=== PATIENT | male | born 1950 | race American Indian/Alaskan Native ===

== ENCOUNTER → 2018-06-06 15:04 | Outpatient (CLI) | payer MEDICARE, OTHER, SELFPAY ==
[2018-06-06 15:59] LABS: Hemoglobin A1C% w Est Avg Glu 7.4 % (4.0-6.0)
[2018-06-06 16:10] LABS: Alanine Aminotransferase 30 IU/L (21-72); Albumin 3.8 g/dL (3.5-5.0); Albumin Globulin Ratio 1.4 (1.0-2.8); Alkaline Phosphatase 67 U/L (38-126); Aspartate Aminotransferase 26 IU/L (17-59); Bilirubin Total 0.5 mg/dL (0.2-1.3); Blood Urea Nitrogen 24 mg/dL (9-20); Calcium 9.1 mg/dL (8.4-10.2); Carbon Dioxide 23 mmol/L (22-32); Chloride 107 mmol/L (98-107); Estimated Glomerular Filt Rate > 60.0 mL/min (>60); Globulin 2.8 g/dL (1.7-4.1); Glucose 156 mg/dL (80-110); HEMOLYSIS < 15 (0-50); Potassium 4.4 mmol/L (3.4-5.1); Sodium 144 mmol/L (137-145); Total Protein 6.6 g/dL (6.3-8.2)
== END ==
PROVIDERS: Visit Provider Internal Medicine
DX: E11.9 Type 2 diabetes mellitus without complications (principal)
CPT/HCPCS: 36415; 80053; 83036

== ENCOUNTER 2018-10-01 19:09 | Emergency (ER) | payer MEDICARE, OTHER, SELFPAY ==
[2018-10-01 19:13] VITALS: BP 147/82; PULSE 67; RESP 18; TEMP 36.9; O2SAT 97; BMI 37.6
--- NOTE | 2018-10-01 19:26 | DI.RAD.S_ITS ---
PROCEDURE: XR CHEST 1V INDICATIONS: chest pain TECHNIQUE: One view of the chest was acquired. COMPARISON: None. FINDINGS: Surgical changes and devices: None. Lungs and pleura: No pleural effusions or pneumothorax. Lungs are clear. Mediastinum: Mediastinal contours appear normal. Heart size is normal. Bones and chest wall: No suspicious bony lesions. Overlying soft tissues appear unremarkable. IMPRESSION: No acute cardiopulmonary findings. Dictated by: Eugenia Muniz M.D. on 10/01/2018 at 20:05 Approved by: Eugenia Muniz M.D. on 10/01/2018 at 20:05
--- NOTE | 2018-10-01 19:38 | ED.CHESTPAIN ---
HPI - Chest Pain General Chief Complaint: Chest Pain Stated Complaint: left arm pain Time Seen by Provider: 10/01/18 19:12 Source: patient Mode of arrival: ambulatory Limitations: no limitations History of Present Illness HPI narrative: 68-year-old nonsmoking male with extensive cardiac history presents with chest pain and other cardiac equivalent over the course of week. His symptoms started a few days ago when he was exercising on a stationary bicycle and developed anterior chest pressure with radiation to his shoulder arm and jaw. He became short of breath, dizzy diaphoretic and nauseated. His symptoms lasted a few hours and then resolved. Since then he has had a few other episodes of relatively similar type symptoms though not quite as severe. Earlier today he had an episode left shoulder and arm pressure with radiation into his neck while at rest. His drupal web developer is up in [place] and he has had no provocative testing in some time. He denies any current symptoms. He is not dizzy nor weak or lightheaded. Denies any current chest pain or shortness of breath. The patient states he has taken all of his medications today MD complaint: chest pain Onset (ago): hour(s) Duration: now resolved Pain location: left chest Severity: moderate Quality: aching Pain radiation: LUE, neck and jaw/teeth Relieving factors: rest Exacerbating factors: nothing Treatments prior to arrival chest pain: aspirin Related Data Home Medications Medication Instructions Recorded Confirmed carvedilol [Coreg] 50 mg PO BID #0 05/27/11 09/28/18 clopidogrel [Plavix] 75 mg PO QPM #0 07/21/12 09/28/18 isosorbide mononitrate 30 mg PO BID #0 06/10/17 09/28/18 rosuvastatin 5 mg PO HS #0 06/10/17 09/28/18 niacin 500 mg tablet 500 mg PO Q DAY #0 tab 06/06/18 09/28/18 amlodipine [Norvasc] 5 mg PO BID 10/01/18 insulin glargine [Lantus Solostar 40 units SUBCUT BID 10/01/18 10/01/18 U-100 Insulin] iron 25 mg DAILY 10/01/18 10/01/18 isosorbide mononitrate BID 10/01/18 losartan BID 10/01/18 metformin 500 mg PO ONCE HS 10/01/18 Previous Rx's Medication Instructions Recorded Disabled Parking Permit ea #1 10/15/16 gabapentin [Neurontin] 300 mg PO TID #90 tab 11/08/17 nitroglycerin 0.4 mg sublingual 0.4 mg SL Q5-15M PRN #20 tab 05/25/18 tablet aspirin 325 mg tablet 325 mg PO DAILY #1 tab 06/06/18 sucralfate 1 gram tablet 1 gram PO Q6H #120 tab 06/06/18 pantoprazole 40 mg tablet,delayed 40 mg PO BID #60 tab 08/04/18 release cyclobenzaprine 10 mg tablet 10 mg PO BID PRN #60 tab 09/06/18 insulin glargine (U-100) 100 40 unit SUBCUT BID #30 ml 09/21/18 unit/mL (3 mL) subcutaneous pen TRUE METRIX TEST STRIPS #1 ea 09/23/18 [LANCETS] #1 ea 09/23/18 losartan 50 mg tablet 50 mg PO BID #60 tab 09/23/18 Allergies Allergy/AdvReac Type Severity Reaction Status Date / Time atorvastatin [ATORVASTATIN] AdvReac Severe CHEST Verified 09/21/18 09:39 TIGHTNESS morphine [MORPHINE] AdvReac Mild GI UPSET Verified 09/21/18 09:39 AND VOMITING Review of Systems Review of Systems All systems reviewed & are unremarkable except as noted in HPI and below Constitutional Denies chills, Denies fever(s), Denies lethargy and Denies weakness Eyes Denies change in vision, Denies eye discharge, Denies irritation and Denies loss of vision ENT Ears, Nose, Mouth, and Throat: Denies change in voice, Denies neck pain and Denies sore throat Cardiovascular Denies chest pain, Denies irregular heart rhythm, Denies lightheadedness, Denies palpitations, Denies dyspnea, Denies dyspnea on exertion and Denies orthopnea Respiratory Denies cough, Denies dyspnea, Denies dyspnea on exertion and Denies wheezing Gastrointestinal Gastrointestinal: Denies abdominal pain, Denies change in bowel habits, Denies diarrhea, Denies nausea and Denies vomiting Genitourinary Denies hematuria, Denies flank pain, Denies urinary incontinence and Denies urinary urgency Musculoskeletal Denies neck pain Integumentary/Breasts Denies pruritus, Denies erythema, Denies rash and Denies wounds Neurologic Denies confusion, Denies loss of vision and Denies weakness Psychiatric Denies anxiety, Denies confusion, Denies depression, Denies homicidal ideation and Denies suicidal ideation Endocrine Denies palpitations Hematologic/Lymphatic Denies easy bruising Allergic/Immunologic Denies wheezing [facility] Medical History Obstructive sleep apnea of adult (Chronic ~2012) Excessive daytime sleepiness (Inactive ~2012) Insomnia, persistent (Inactive ~2012) CAD (coronary artery disease) (Chronic) CKD (chronic kidney disease) stage 3, GFR 30-59 ml/min (Chronic) Diabetes mellitus (Chronic) Hyperlipidemia (Chronic) Lumbar spinal stenosis (Chronic) Microalbuminuria (Chronic) Osteoarthritis of knees, bilateral (Chronic) Bilateral cataracts (Resolved 2018) H. pylori infection (Resolved) Surgical History History of cardiac catheterization (Resolved) History of cataract surgery (Resolved 2018) History of decompression of ulnar nerve (Resolved) History of heart artery stent (Resolved) History of spinal surgery (Resolved) History of total right knee replacement (TKR) (Resolved) Social History marital status: details: to Charmaine household members: spouse lives independently: Yes caregiver/support person: No housing: house occupational status: employed current occupational exposures/hazards: Yes ([employer]) Smoking Status: Never smoker alcohol intake: current substance use type: does not use caffeine: No Exam Narrative Exam Narrative: GENERAL: 68M, morbidly obese is resting comfortably, not currently in any obvious distress HEAD: Atraumatic. Normocephalic. No temporal or scalp tenderness. EYES: Pupils equal round and reactive. Extraocular motions intact. No scleral icterus. No injection or drainage. ENT: Nose without bleeding, purulent drainage or septal hematoma. Throat without erythema, tonsillar hypertrophy or exudate. Uvula midline. Airway patent. NECK: Trachea midline. No JVD or lymphadenopathy. Supple, nontender, no meningeal signs. CARDIOVASCULAR: Regular rate and rhythm without murmurs, gallops, or rubs. RESPIRATORY: Clear to auscultation. Breath sounds equal bilaterally. No wheezes, rales, or rhonchi. GASTROINTESTINAL: Abdomen soft, non-tender, nondistended. No hepato-splenomegaly, or palpable masses. No guarding. EXTREMITIES: No clubbing, cyanosis, or edema. No joint tenderness, effusion, or edema noted. BACK: Nontender without deformity or crepitance. No flank tenderness. NEURO: AOx3. SKIN: No rash or erythema. Initial Vital Signs Initial Vital Signs: Vital Signs Temperature 98.5 F 10/01/18 19:13 Pulse Rate 67 10/01/18 19:13 Respiratory Rate 18 10/01/18 19:13 Blood Pressure 147/82 H 10/01/18 19:13 Pulse Oximetry 97 10/01/18 19:13 Course Orders Ordered: ED Orders 10/01/18 19:26 XR chest 1V Stat EKG-12 Lead Stat 10/01/18 19:32 Complete Blood Count AUTO DIFF Stat Comprehensive Metabolic Panel Stat Lipase Stat Partial Thromboplastin Time Stat Prothrombin Time INR Stat Troponin & CK Cardiac Panel Stat Reevaluation(s) Reevaluation #1: patient continues to be pain free Consultations Consultation #1: call to cardiology at [facility] and we share agreement that patient is most appropriately cared for up there as he will likely need a cath. They request admission to hospitalist Consultation #2: Dr. Falcon is happy to accept on her hospitalist service Vital Signs - 8 hr 10/01/18 19:13 10/01/18 20:55 10/01/18 21:00 Temperature 98.5 F Pulse Rate 67 70 60 Respiratory Rate 18 20 21 Blood Pressure 147/82 H Blood Pressure [Right Arm] 131/76 123/68 Pulse Oximetry 97 100 100 MDM - Chest Pain Differential Diagnosis Likely unstable angina pectoris, atypical chest pain, st elevation myocardial infarction, costochondritis and chest pain Medical Records Data Attestation: I reviewed the patient's medical records. Lab Data Result diagrams: 10/01/18 19:32 10/01/18 19:32 Lab Results 10/01/18 10/01/18 10/01/18 Range/Units 19:32 19:32 19:32 WBC 7.2 (4.5-11.0) X10^3/uL RBC 4.56 (4.5-5.9) X10^6/uL Hgb 13.3 L (13.5-17.5) g/dL Hct 39.5 L (41-53) % MCV 86.7 (80-100) fL MCH 29.2 (26-34) PG MCHC 33.7 (30-36) % RDW 14.2 (11.6-14.8) % Plt Count 220 (150-400) X10^3/uL Neut % (Auto) 60.5 (50-75) % Lymph % (Auto) 28.4 (25-40) % [place] % (Auto) 7.3 (3-14) % Eos % (Auto) 3.1 (2-4) % Baso % (Auto) 0.7 (0-2) % Neut # (Auto) 4300 (8326-2165) /uL PT 11.2 (10.1-12.7) SECONDS INR 1.0 (0.9-1.3) APTT 33 (26.4-36.2) SECONDS Sodium 142 (137-145) mmol/L Potassium 4.1 (3.4-5.1) mmol/L Chloride 106 (98-107) mmol/L Carbon Dioxide 23 (22-32) mmol/L BUN 22 H (9-20) mg/dL Creatinine 1.20 (0.66-1.25) mg/dL Estimated GFR > 60.0 (>60) mL/min BUN/Creatinine Ratio 18.3 (6-22) Glucose 146 H (80-110) mg/dL Calcium 9.3 (8.4-10.2) mg/dL Total Bilirubin 0.5 (0.2-1.3) mg/dL AST 23 (17-59) IU/L ALT 32 (21-72) IU/L Alkaline Phosphatase 69 (38-126) U/L Total Creatine Kinase 42 L (55-170) U/L CK-MB (CK-2) TNP CK-MB (CK-2) Rel Index TNP Troponin I < 0.012 (0.01-0.034) ng/mL Total Protein 7.6 (6.3-8.2) g/dL Albumin 4.3 (3.5-5.0) g/dL Globulin 3.3 (1.7-4.1) g/dL Albumin/Globulin Ratio 1.3 (1.0-2.8) Lipase 143 (23-300) U/L ECG Data Attestation: I personally reviewed and interpreted this ECG as follows: Interpretation: EKG is normal sinus rhythm rate [66 ] and free of any signs of ischemia or ectopy. No ST segmental elevation or depression. No T wave inversions. Q waves in inferior leads EKG #2 (2115) unchanged. Patient remains asymptomatic. [facility] Narrative Medical decision making narrative: 68M with known cardiac disease presents with very concerning story for ischemia. EKG x2 are absent of acute change and first troponin is normal. Given story and history myself, drupal web developer, and hospitalist agree that transfer for more complete cardiac workup makes the most sense Discharge Plan Departure Patient Disposition: [facility] Clinical Impression: Angina pectoris, unstable Prescriptions: No Action carvedilol [Coreg] 25 MG tablet 50 mg PO BID Qty: 0 RF: 0 clopidogrel [Plavix] 75 MG tablet 75 mg PO QPM Qty: 0 RF: 0 Disabled Parking Permit Qty: 1 RF: 0 isosorbide mononitrate 30 MG tablet extended release 24 hr 30 mg PO BID Qty: 0 RF: 0 rosuvastatin 10 MG tablet 5 mg PO HS Qty: 0 RF: 0 gabapentin [Neurontin] 300 MG capsule 300 mg PO TID Qty: 90 RF: 11 nitroglycerin [Nitrostat] 0.4 mg tablet, sublingual 0.4 mg SL Q5-15M PRN (Reason: chest pain) Qty: 20 RF: 0 pantoprazole 40 mg tablet,delayed release (DR/EC) 40 mg PO BID Qty: 60 RF: 11 cyclobenzaprine 10 mg tablet 10 mg PO BID PRN (Reason: muscle spasm) Qty: 60 RF: 0 [LANCETS] .Route .MEDSUPPLY Qty: 1 RF: 12 TRUE METRIX TEST STRIPS Qty: 1 RF: 11 losartan 50 mg tablet 50 mg PO BID Qty: 60 RF: 5 insulin glargine [Lantus Solostar U-100 Insulin] 100 unit/mL (3 mL) insulin pen 40 unit SUBCUT BID Qty: 30 RF: 1 aspirin 325 mg tablet 325 mg PO DAILY Qty: 1 RF: 0 niacin 500 mg tablet 500 mg PO Q DAY Qty: 0 RF: 0 sucralfate 1 gram tablet 1 gram PO Q6H Qty: 120 RF: 1 isosorbide mononitrate 30 mg tablet extended release 24 hr BID RF: 0 amlodipine [Norvasc] 2.5 mg tablet 5 mg PO BID RF: 0 losartan 50 mg tablet BID RF: 0 metformin 1,000 MG tablet 500 mg PO ONCE HS RF: 0 insulin glargine [Lantus Solostar U-100 Insulin] 100 unit/mL (3 mL) insulin pen 40 units subcut BID RF: 0 iron 25 mg DAILY RF: 0
[2018-10-01 19:47] LABS: Add Manual Diff / Slide Review NO; Basophils Percent Auto 0.7 % (0-2); Eosinophils Percent Auto 3.1 % (2-4); Hematocrit 39.5 % (41-53); Hemoglobin 13.3 g/dL (13.5-17.5); Lymphocytes Percent Auto 28.4 % (25-40); Mean Corpuscular HGB Conc 33.7 % (30-36); Mean Corpuscular Hemoglobin 29.2 PG (26-34); Mean Corpuscular Volume 86.7 fL (80-100); Monocytes Percent Auto 7.3 % (3-14); Neutrophils Absolute Auto 4300 /uL (1500-7000); Neutrophils Percent Auto 60.5 % (50-75); Platelet Count 220 X10^3/uL (150-400); Red Blood Cell Count 4.56 X10^6/uL (4.5-5.9); Red Cell Distribution Width 14.2 % (11.6-14.8); White Blood Cell Count 7.2 X10^3/uL (4.5-11.0)
[2018-10-01 19:54] LABS: Prothrombin Time 11.2 SECONDS (10.1-12.7)
[2018-10-01 19:57] LABS: PTT Partial Thromboplastin Tim 33 SECONDS (26.4-36.2)
--- NOTE | 2018-10-01 19:58 | PC.NURSE ---
Pt reports discomfort with dizziness with exertion-stationary bike a few days ago. [facility] in [facility] past with st[facility] and had dyspnea, neck/jaw/teeth pain in the past.
[2018-10-01 20:03] LABS: Alanine Aminotransferase 32 IU/L (21-72); Albumin 4.3 g/dL (3.5-5.0); Albumin Globulin Ratio 1.3 (1.0-2.8); Alkaline Phosphatase 69 U/L (38-126); Aspartate Aminotransferase 23 IU/L (17-59); BUN Creatinine Ratio 18.3 (6-22); Bilirubin Total 0.5 mg/dL (0.2-1.3); Blood Urea Nitrogen 22 mg/dL (9-20); Calcium 9.3 mg/dL (8.4-10.2); Carbon Dioxide 23 mmol/L (22-32); Chloride 106 mmol/L (98-107); Creatine Kinase 42 U/L (55-170); Estimated Glomerular Filt Rate > 60.0 mL/min (>60); Globulin 3.3 g/dL (1.7-4.1); Glucose 146 mg/dL (80-110); HEMOLYSIS < 15 (0-50); Lipase 143 U/L (23-300); Potassium 4.1 mmol/L (3.4-5.1); Sodium 142 mmol/L (137-145); Total Protein 7.6 g/dL (6.3-8.2)
[2018-10-01 20:19] LABS: Troponin I < 0.012 ng/mL (0.01-0.034)
[2018-10-01 20:55] VITALS: BP 131/76; PULSE 70; RESP 20; O2SAT 100
[2018-10-01 21:00] VITALS: BP 123/68; PULSE 60; RESP 21; O2SAT 100
--- NOTE | 2018-10-01 21:11 | ED_ITS ---
HPI - Chest Pain General Chief Complaint: Chest Pain Stated Complaint: left arm pain Time Seen by Provider: 10/01/18 19:12 Source: patient Mode of arrival: ambulatory Limitations: no limitations History of Present Illness HPI narrative: 68-year-old nonsmoking male with extensive cardiac history presents with chest pain and other cardiac equivalent over the course of week. His symptoms started a few days ago when he was exercising on a stationary bicycle and developed anterior chest pressure with radiation to his shoulder arm and jaw. He became short of breath, dizzy diaphoretic and nauseated. His symptoms lasted a few hours and then resolved. Since then he has had a few other episodes of relatively similar type symptoms though not quite as severe. Earlier today he had an episode left shoulder and arm pressure with radiation into his neck while at rest. His compensation manager is up in [place] and he has had no provocative testing in some time. He denies any current symptoms. He is not dizzy nor weak or lightheaded. Denies any current chest pain or shortness of breath. The patient states he has taken all of his medications today MD complaint: chest pain Onset (ago): hour(s) Duration: now resolved Pain location: left chest Severity: moderate Quality: aching Pain radiation: LUE, neck and jaw/teeth Relieving factors: rest Exacerbating factors: nothing Treatments prior to arrival chest pain: aspirin Related Data Home Medications Medication Instructions Recorded Confirmed carvedilol [Coreg] 50 mg PO BID #0 05/27/11 09/28/18 clopidogrel [Plavix] 75 mg PO QPM #0 07/21/12 09/28/18 isosorbide mononitrate 30 mg PO BID #0 06/10/17 09/28/18 rosuvastatin 5 mg PO HS #0 06/10/17 09/28/18 niacin 500 mg tablet 500 mg PO Q DAY #0 tab 06/06/18 09/28/18 amlodipine [Norvasc] 5 mg PO BID 10/01/18 insulin glargine [Lantus Solostar 40 units SUBCUT BID 10/01/18 10/01/18 U-100 Insulin] iron 25 mg DAILY 10/01/18 10/01/18 isosorbide mononitrate BID 10/01/18 losartan BID 10/01/18 metformin 500 mg PO ONCE HS 10/01/18 Previous Rx's Medication Instructions Recorded Disabled Parking Permit ea #1 10/15/16 gabapentin [Neurontin] 300 mg PO TID #90 tab 11/08/17 nitroglycerin 0.4 mg sublingual 0.4 mg SL Q5-15M PRN #20 tab 05/25/18 tablet aspirin 325 mg tablet 325 mg PO DAILY #1 tab 06/06/18 sucralfate 1 gram tablet 1 gram PO Q6H #120 tab 06/06/18 pantoprazole 40 mg tablet,delayed 40 mg PO BID #60 tab 08/04/18 release cyclobenzaprine 10 mg tablet 10 mg PO BID PRN #60 tab 09/06/18 insulin glargine (U-100) 100 40 unit SUBCUT BID #30 ml 09/21/18 unit/mL (3 mL) subcutaneous pen TRUE METRIX TEST STRIPS #1 ea 09/23/18 [LANCETS] #1 ea 09/23/18 losartan 50 mg tablet 50 mg PO BID #60 tab 09/23/18 Allergies Allergy/AdvReac Type Severity Reaction Status Date / Time atorvastatin [ATORVASTATIN] AdvReac Severe CHEST Verified 09/21/18 09:39 TIGHTNESS morphine [MORPHINE] AdvReac Mild GI UPSET Verified 09/21/18 09:39 AND VOMITING Review of Systems Review of Systems All systems reviewed & are unremarkable except as noted in HPI and below Constitutional Denies chills, Denies fever(s), Denies lethargy and Denies weakness Eyes Denies change in vision, Denies eye discharge, Denies irritation and Denies loss of vision ENT Ears, Nose, Mouth, and Throat: Denies change in voice, Denies neck pain and Denies sore throat Cardiovascular Denies chest pain, Denies irregular heart rhythm, Denies lightheadedness, Denies palpitations, Denies dyspnea, Denies dyspnea on exertion and Denies orthopnea Respiratory Denies cough, Denies dyspnea, Denies dyspnea on exertion and Denies wheezing Gastrointestinal Gastrointestinal: Denies abdominal pain, Denies change in bowel habits, Denies diarrhea, Denies nausea and Denies vomiting Genitourinary Denies hematuria, Denies flank pain, Denies urinary incontinence and Denies urinary urgency Musculoskeletal Denies neck pain Integumentary/Breasts Denies pruritus, Denies erythema, Denies rash and Denies wounds Neurologic Denies confusion, Denies loss of vision and Denies weakness Psychiatric Denies anxiety, Denies confusion, Denies depression, Denies homicidal ideation and Denies suicidal ideation Endocrine Denies palpitations Hematologic/Lymphatic Denies easy bruising Allergic/Immunologic Denies wheezing COUNT INCLUDES THE [facility] Medical History Obstructive sleep apnea of adult (Chronic ~2012) Excessive daytime sleepiness (Inactive ~2012) Insomnia, persistent (Inactive ~2012) CAD (coronary artery disease) (Chronic) CKD (chronic kidney disease) stage 3, GFR 30-59 ml/min (Chronic) Diabetes mellitus (Chronic) Hyperlipidemia (Chronic) Lumbar spinal stenosis (Chronic) Microalbuminuria (Chronic) Osteoarthritis of knees, bilateral (Chronic) Bilateral cataracts (Resolved 2018) H. pylori infection (Resolved) Surgical History History of cardiac catheterization (Resolved) History of cataract surgery (Resolved 2018) History of decompression of ulnar nerve (Resolved) History of heart artery stent (Resolved) History of spinal surgery (Resolved) History of total right knee replacement (TKR) (Resolved) Social History marital status: details: to Charmaine household members: spouse lives independently: Yes caregiver/support person: No housing: house occupational status: employed current occupational exposures/hazards: Yes ([employer]) Smoking Status: Never smoker alcohol intake: current substance use type: does not use caffeine: No Exam Narrative Exam Narrative: GENERAL: 68M, morbidly obese is resting comfortably, not currently in any obvious distress HEAD: Atraumatic. Normocephalic. No temporal or scalp tenderness. EYES: Pupils equal round and reactive. Extraocular motions intact. No scleral icterus. No injection or drainage. ENT: Nose without bleeding, purulent drainage or septal hematoma. Throat without erythema, tonsillar hypertrophy or exudate. Uvula midline. Airway patent. NECK: Trachea midline. No JVD or lymphadenopathy. Supple, nontender, no meningeal signs. CARDIOVASCULAR: Regular rate and rhythm without murmurs, gallops, or rubs. RESPIRATORY: Clear to auscultation. Breath sounds equal bilaterally. No wheezes , rales, or rhonchi. GASTROINTESTINAL: Abdomen soft, non-tender, nondistended. No hepato-splenomegaly , or palpable masses. No guarding. EXTREMITIES: No clubbing, cyanosis, or edema. No joint tenderness, effusion, or edema noted. BACK: Nontender without deformity or crepitance. No flank tenderness. NEURO: AOx3. SKIN: No rash or erythema. Initial Vital Signs Initial Vital Signs: Vital Signs Temperature 98.5 F 10/01/18 19:13 Pulse Rate 67 10/01/18 19:13 Respiratory Rate 18 10/01/18 19:13 Blood Pressure 147/82 H 10/01/18 19:13 Pulse Oximetry 97 10/01/18 19:13 Course Orders Ordered: ED Orders 10/01/18 19:26 XR chest 1V Stat EKG-12 Lead Stat 10/01/18 19:32 Complete Blood Count AUTO DIFF Stat Comprehensive Metabolic Panel Stat Lipase Stat Partial Thromboplastin Time Stat Prothrombin Time INR Stat Troponin & CK Cardiac Panel Stat Reevaluation(s) Reevaluation #1: patient continues to be pain free Consultations Consultation #1: call to cardiology at [facility] and we share agreement that patient is most appropriately cared for up there as he will likely need a cath. They request admission to hospitalist Consultation #2: Dr. Falcon is happy to accept on her hospitalist service Vital Signs - 8 hr 10/01/18 19:13 10/01/18 20:55 10/01/18 21:00 Temperature 98.5 F Pulse Rate 67 70 60 Respiratory Rate 18 20 21 Blood Pressure 147/82 H Blood Pressure [Right Arm] 131/76 123/68 Pulse Oximetry 97 100 100 MDM - Chest Pain Differential Diagnosis Likely unstable angina pectoris, atypical chest pain, st elevation myocardial infarction, costochondritis and chest pain Medical Records Data Attestation: I reviewed the patient's medical records. Lab Data Result diagrams: 10/01/18 19:32 10/01/18 19:32 Lab Results 10/01/18 10/01/18 10/01/18 Range/Units 19:32 19:32 19:32 WBC 7.2 (4.5-11.0) X10^3/uL RBC 4.56 (4.5-5.9) X10^6/uL Hgb 13.3 L (13.5-17.5) g/dL Hct 39.5 L (41-53) % MCV 86.7 (80-100) fL MCH 29.2 (26-34) PG MCHC 33.7 (30-36) % RDW 14.2 (11.6-14.8) % Plt Count 220 (150-400) X10^3/uL Neut % (Auto) 60.5 (50-75) % Lymph % (Auto) 28.4 (25-40) % [place] % (Auto) 7.3 (3-14) % Eos % (Auto) 3.1 (2-4) % Baso % (Auto) 0.7 (0-2) % Neut # (Auto) 4300 (8324-1432) /uL PT 11.2 (10.1-12.7) SECONDS INR 1.0 (0.9-1.3) APTT 33 (26.4-36.2) SECONDS Sodium 142 (137-145) mmol/L Potassium 4.1 (3.4-5.1) mmol/L Chloride 106 (98-107) mmol/L Carbon Dioxide 23 (22-32) mmol/L BUN 22 H (9-20) mg/dL Creatinine 1.20 (0.66-1.25) mg/dL Estimated GFR > 60.0 (>60) mL/min BUN/Creatinine Ratio 18.3 (6-22) Glucose 146 H (80-110) mg/dL Calcium 9.3 (8.4-10.2) mg/dL Total Bilirubin 0.5 (0.2-1.3) mg/dL AST 23 (17-59) IU/L ALT 32 (21-72) IU/L Alkaline Phosphatase 69 (38-126) U/L Total Creatine Kinase 42 L (55-170) U/L CK-MB (CK-2) TNP CK-MB (CK-2) Rel Index TNP Troponin I < 0.012 (0.01-0.034) ng/mL Total Protein 7.6 (6.3-8.2) g/dL Albumin 4.3 (3.5-5.0) g/dL Globulin 3.3 (1.7-4.1) g/dL Albumin/Globulin Ratio 1.3 (1.0-2.8) Lipase 143 (23-300) U/L ECG Data Attestation: I personally reviewed and interpreted this ECG as follows: Interpretation: EKG is normal sinus rhythm rate [66 ] and free of any signs of ischemia or ectopy. No ST segmental elevation or depression. No T wave inversions. Q waves in inferior leads EKG #2 (2115) unchanged. Patient remains asymptomatic. [facility] Narrative Medical decision making narrative: 68M with known cardiac disease presents with very concerning story for ischemia. EKG x2 are absent of acute change and first troponin is normal. Given story and history myself, compensation manager, and hospitalist agree that transfer for more complete cardiac workup makes the most sense Discharge Plan Departure Patient Disposition: [facility] Clinical Impression: Angina pectoris, unstable Prescriptions: No Action carvedilol [Coreg] 25 MG tablet 50 mg PO BID Qty: 0 RF: 0 clopidogrel [Plavix] 75 MG tablet 75 mg PO QPM Qty: 0 RF: 0 Disabled Parking Permit Qty: 1 RF: 0 isosorbide mononitrate 30 MG tablet extended release 24 hr 30 mg PO BID Qty: 0 RF: 0 rosuvastatin 10 MG tablet 5 mg PO HS Qty: 0 RF: 0 gabapentin [Neurontin] 300 MG capsule 300 mg PO TID Qty: 90 RF: 11 nitroglycerin [Nitrostat] 0.4 mg tablet, sublingual 0.4 mg SL Q5-15M PRN (Reason: chest pain) Qty: 20 RF: 0 pantoprazole 40 mg tablet,delayed release (DR/EC) 40 mg PO BID Qty: 60 RF: 11 cyclobenzaprine 10 mg tablet 10 mg PO BID PRN (Reason: muscle spasm) Qty: 60 RF: 0 [LANCETS] .Route .MEDSUPPLY Qty: 1 RF: 12 TRUE METRIX TEST STRIPS Qty: 1 RF: 11 losartan 50 mg tablet 50 mg PO BID Qty: 60 RF: 5 insulin glargine [Lantus Solostar U-100 Insulin] 100 unit/mL (3 mL) insulin pen 40 unit SUBCUT BID Qty: 30 RF: 1 aspirin 325 mg tablet 325 mg PO DAILY Qty: 1 RF: 0 niacin 500 mg tablet 500 mg PO Q DAY Qty: 0 RF: 0 sucralfate 1 gram tablet 1 gram PO Q6H Qty: 120 RF: 1 isosorbide mononitrate 30 mg tablet extended release 24 hr BID RF: 0 amlodipine [Norvasc] 2.5 mg tablet 5 mg PO BID RF: 0 losartan 50 mg tablet BID RF: 0 metformin 1,000 MG tablet 500 mg PO ONCE HS RF: 0 insulin glargine [Lantus Solostar U-100 Insulin] 100 unit/mL (3 mL) insulin pen 40 units subcut BID RF: 0 iron 25 mg DAILY RF: 0
--- NOTE | 2018-10-01 22:52 | PC.NURSE ---
Provided 1/2 sandwich with water for nutritional support
[2018-10-01] MEDS: ASPIRIN 325 MG TABLET PO (22:58)
[2018-10-01 23:00] VITALS: BP 150/66; PULSE 68; RESP 20
--- NOTE | 2018-10-01 23:07 | PC.NURSE ---
Phone report called to JUNIE Galeas at [facility] for continuation of care. All questions answered. Pt taken his night dose medications except Lantus. Medicated pt with a full dose of ASA as ordered.
== END 2018-10-01 23:18 | disposition short-term general hospital (02) ==
PROVIDERS: Emergency Provider Emergency Medicine; Family Provider Family Medicine; PCP Family Medicine
DX: I20.0 Unstable angina (principal)
CPT/HCPCS: 36591; 71045; 80053; 82550; 83690; 84484; 85025; 85610; 85730; 93005; 99283; 99285

== ENCOUNTER → 2020-04-02 10:55 | Outpatient (CLI) | payer MEDICARE, OTHER, SELFPAY ==
[2020-04-02 11:14] LABS: Hematocrit 36.4 % (41-53); Hemoglobin 12.2 g/dL (13.5-17.5); Mean Corpuscular HGB Conc 33.5 % (30-36); Mean Corpuscular Volume 86.7 fL (80-100); Platelet Count 236 X10^3/uL (150-400); Red Cell Distribution Width 13.8 % (11.6-14.8); White Blood Cell Count 5.7 X10^3/uL (4.5-11.0)
[2020-04-02 11:38] LABS: Hemoglobin A1C% w Est Avg Glu 7.9 % (4.0-6.0)
[2020-04-02 11:39] LABS: Creatinine Urine Random 106.9 mg/dL
[2020-04-02 11:58] LABS: Microalbumi Creatinin Ratio Ur 254.4 ug/mg CR (<30); Microalbumin Urine Random 27.2 mg/dL (0-1.6)
[2020-04-02 15:56] LABS: BUN Creatinine Ratio 15.2 (6-22); Blood Urea Nitrogen 14 mg/dL (9-20); Calcium 8.9 mg/dL (8.4-10.2); Carbon Dioxide 22 mmol/L (22-32); Chloride 107 mmol/L (98-107); Estimated Glomerular Filt Rate > 60.0 mL/min (>60); Glucose 190 mg/dL (80-110); HEMOLYSIS < 15 (0-50); Potassium 4.4 mmol/L (3.4-5.1); Sodium 139 mmol/L (137-145)
== END ==
PROVIDERS: PCP Student in an Organized Health Care Education/Training Program; Referring Provider Student in an Organized Health Care Education/Training Program; Visit Provider Student in an Organized Health Care Education/Training Program
DX: E11.29 Type 2 diabetes mellitus with other diabetic kidney complication (principal); E66.9 Obesity, unspecified; I10 Essential (primary) hypertension; N18.3 Chronic kidney disease, stage 3 (moderate); R80.9 Proteinuria, unspecified; Z79.4 Long term (current) use of insulin
CPT/HCPCS: 36415; 80048; 82043; 82570; 83036; 85027

== ENCOUNTER → 2020-10-04 15:14 | Outpatient (CLI) | payer MEDICARE, OTHER, SELFPAY ==
[2020-10-04 16:16] LABS: Add Manual Diff / Slide Review NO; Basophils Absolute Auto 0 /uL (0-100); Basophils Percent Auto 0.6 % (0-2); Eosinophils Absolute Auto 300 /uL (0-450); Hematocrit 37.1 % (41-53); Hemoglobin 12.8 g/dL (13.5-17.5); Lymphocytes Absolute Auto 1500 /uL (1100-4500); Lymphocytes Percent Auto 25.6 % (25-40); Mean Corpuscular HGB Conc 34.4 % (30-36); Mean Corpuscular Volume 87.1 fL (80-100); Monocytes Absolute Auto 400 /uL (0-900); Monocytes Percent Auto 6.6 % (3-14); Neutrophils Absolute Auto 3700 /uL (1500-7000); Neutrophils Percent Auto 62.2 % (50-75); Platelet Count 231 X10^3/uL (150-400); Red Blood Cell Count 4.27 X10^6/uL (4.5-5.9); Red Cell Distribution Width 13.9 % (11.6-14.8); White Blood Cell Count 5.9 X10^3/uL (4.5-11.0)
[2020-10-04 16:37] LABS: BUN Creatinine Ratio 16.7 (6-22); Blood Urea Nitrogen 16 mg/dL (9-20); Estimated Glomerular Filt Rate > 60.0 mL/min (>60)
[2020-10-04 16:38] LABS: Creatinine Urine Random 92.6 mg/dL
[2020-10-04 16:47] LABS: Hemoglobin A1C% w Est Avg Glu 6.5 % (4.0-6.0)
[2020-10-04 16:59] LABS: Microalbumi Creatinin Ratio Ur 233.2 ug/mg CR (<30); Microalbumin Urine Random 21.6 mg/dL (0-1.6)
[2020-10-04 17:13] LABS: Ferritin 99 ng/mL (18-464)
[2020-10-04 17:44] LABS: Folate > 20.0 ng/mL (2.76-20.0); Vitamin B12 562 pg/mL (239-931)
== END ==
PROVIDERS: PCP Student in an Organized Health Care Education/Training Program; Referring Provider Student in an Organized Health Care Education/Training Program; Visit Provider Student in an Organized Health Care Education/Training Program
DX: E11.29 Type 2 diabetes mellitus with other diabetic kidney complication (principal); N18.30 Chronic kidney disease, stage 3 unspecified; R80.9 Proteinuria, unspecified; Z79.4 Long term (current) use of insulin; D64.9 Anemia, unspecified
CPT/HCPCS: 36415; 82043; 82565; 82570; 82607; 82728; 82746; 83036; 84520; 85025

== ENCOUNTER → 2021-06-10 11:45 | Outpatient (CLI) | payer MEDICARE, OTHER, SELFPAY ==
[2021-06-10 12:50] LABS: Hematocrit 37.9 % (41-53); Hemoglobin 12.6 g/dL (13.5-17.5); Mean Corpuscular HGB Conc 33.3 % (30-36); Mean Corpuscular Hemoglobin 29.4 PG (26-34); Mean Corpuscular Volume 88.3 fL (80-100); Platelet Count 235 X10^3/uL (150-400); Red Blood Cell Count 4.29 X10^6/uL (4.5-5.9); Red Cell Distribution Width 13.4 % (11.6-14.8); White Blood Cell Count 5.4 X10^3/uL (4.5-11.0)
[2021-06-10 13:08] LABS: Blood Urea Nitrogen 19 mg/dL (9-20); Carbon Dioxide 24 mmol/L (22-32); Chloride 106 mmol/L (98-107); Cholesterol 133 mg/dL (140-199); Estimated Glomerular Filt Rate > 60.0 mL/min (>60); Glucose 181 mg/dL (80-110); HEMOLYSIS < 15 (0-50); Hemoglobin A1C% w Est Avg Glu 6.5 % (4.0-6.0); Potassium 4.5 mmol/L (3.4-5.1); Sodium 138 mmol/L (137-145); Triglycerides 330 mg/dL (35-150)
[2021-06-10 13:23] LABS: HDL Cholesterol 26 mg/dL (40-60); LDL Cholesterol Calculated 41 mg/dL (<100)
== END ==
PROVIDERS: PCP Student in an Organized Health Care Education/Training Program; Referring Provider Student in an Organized Health Care Education/Training Program; Visit Provider Student in an Organized Health Care Education/Training Program
DX: E11.22 Type 2 diabetes mellitus with diabetic chronic kidney disease (principal); E11.9 Type 2 diabetes mellitus without complications; E78.5 Hyperlipidemia, unspecified; E11.29 Type 2 diabetes mellitus with other diabetic kidney complication; R80.9 Proteinuria, unspecified; Z79.4 Long term (current) use of insulin; N18.2 Chronic kidney disease, stage 2 (mild); I10 Essential (primary) hypertension; D63.8 Anemia in other chronic diseases classified elsewhere; E11.69 Type 2 diabetes mellitus with other specified complication
CPT/HCPCS: 36415; 80048; 80061; 83036; 85027

== ENCOUNTER → 2022-01-02 12:43 | Outpatient (CLI) | payer MEDICARE, OTHER, SELFPAY ==
[2022-01-02 13:57] LABS: Hemoglobin A1C% w Est Avg Glu 7.1 % (4.0-6.0)
[2022-01-02 14:18] LABS: BUN Creatinine Ratio 14.2 (6-22); Blood Urea Nitrogen 16 mg/dL (9-20); Estimated Glomerular Filt Rate > 60.0 mL/min (>60)
[2022-01-02 14:34] LABS: Creatinine Urine Random 332.6 mg/dL
[2022-01-02 15:05] LABS: Microalbumi Creatinin Ratio Ur 685.5 ug/mg CR (<30)
== END ==
PROVIDERS: PCP Student in an Organized Health Care Education/Training Program; Referring Provider Student in an Organized Health Care Education/Training Program; Visit Provider Student in an Organized Health Care Education/Training Program
DX: E11.22 Type 2 diabetes mellitus with diabetic chronic kidney disease (principal); N18.2 Chronic kidney disease, stage 2 (mild); E11.29 Type 2 diabetes mellitus with other diabetic kidney complication; R80.9 Proteinuria, unspecified; Z97.4 Presence of external hearing-aid; I10 Essential (primary) hypertension
CPT/HCPCS: 36415; 82043; 82565; 82570; 83036; 84520

== ENCOUNTER → 2022-07-31 10:44 | Outpatient (CLI) | payer MEDICARE, OTHER, SELFPAY ==
[2022-07-31 12:01] LABS: Hemoglobin A1C% w Est Avg Glu 6.8 % (4.0-6.0)
[2022-07-31 12:09] LABS: Blood Urea Nitrogen 22 mg/dL (9-20); Calcium 8.5 mg/dL (8.4-10.2); Carbon Dioxide 27 mmol/L (22-32); Chloride 103 mmol/L (98-107); Estimated Glomerular Filt Rate > 60 mL/min (>60); Glucose 267 mg/dL (80-110); HEMOLYSIS < 15 (0-50); Potassium 4.1 mmol/L (3.4-5.1); Sodium 140 mmol/L (137-145)
[2022-07-31 12:17] LABS: Creatinine Urine Random 146.2 mg/dL
[2022-07-31 13:47] LABS: Microalbumi Creatinin Ratio Ur 492.4 ug/mg CR (<30)
== END ==
PROVIDERS: PCP Student in an Organized Health Care Education/Training Program; Referring Provider Student in an Organized Health Care Education/Training Program; Visit Provider Student in an Organized Health Care Education/Training Program
DX: E11.29 Type 2 diabetes mellitus with other diabetic kidney complication (principal); R80.9 Proteinuria, unspecified; Z79.4 Long term (current) use of insulin; E11.22 Type 2 diabetes mellitus with diabetic chronic kidney disease; N18.2 Chronic kidney disease, stage 2 (mild)
CPT/HCPCS: 36415; 80048; 82043; 82570; 83036

== ENCOUNTER → 2022-09-19 11:00 | Outpatient (CLI) | payer MEDICARE, OTHER, SELFPAY | PROVIDERS: PCP Student in an Organized Health Care Education/Training Program; Visit Provider Physician Assistant Medical | DX: R30.0 Dysuria (principal) | CPT/HCPCS: 87077; 87086; 87186 ==

== ENCOUNTER 2023-02-09 18:34 | Emergency (ER) | payer MEDICARE, OTHER, SELFPAY ==
[2023-02-09] VITALS (21 sets, daily range): BP systolic 137–170; BP diastolic 67–112; PULSE 70–127; RESP 15–28; TEMP 36.3; O2SAT 98–100; BMI 38.0
--- NOTE | 2023-02-09 18:45 | DI.RAD.S_ITS ---
PROCEDURE: XR CHEST 1V INDICATIONS: chest pain TECHNIQUE: One view of the chest was acquired. COMPARISON: [facility], , CHEST 2 VIEW, 04/20/2017, 10:10. [facility], [place], XR CHEST 1V, 10/01/2018, 19:59. FINDINGS: Surgical changes and devices: None. Lungs and pleura: Lungs are clear. No pleural effusions or pneumothorax. Subtle airspace opacities of the lungs are likely due to overlying soft tissue but could be due to mild edema. Mediastinum: Mediastinal contours appear normal. Heart size is enlarged however. Bones and chest wall: No suspicious bony lesions. Overlying soft tissues appear unremarkable. IMPRESSION: Cardiomegaly. Mild pulmonary edema versus superimposed soft tissue. Dictated by: Pedro Núñez M.D. on 02/09/2023 at 19:43 Approved by: Pedro Núñez M.D. on 02/09/2023 at 19:45
--- NOTE | 2023-02-09 18:45 | ED.GENADULT ---
HPI - General Adult General Chief complaint: Shortness of Breath/Dyspnea Stated complaint: Light headed and dizzy, ABD pain, SOB Time Seen by Provider: 02/09/23 18:45 Source: patient and family Mode of arrival: Ambulatory History of Present Illness HPI narrative: 73-year-old male nonsmoker with a history of chronic kidney disease, anemia of chronic disease, type 2 diabetes, obesity presents to the emergency department with about 3-4 days feeling short of breath dizzy and with abdominal pain. He states his abdominal pain seems to worsen his shortness of breath, And he denies shortness of breath in the absence of this abdominal pain. He states it seems to be worse in his upper belly and he denies any radiation of the pain. He states eating seems to make his pain worse. He is had a few occasions of palpitations in the left side of his chest that seemed to come and go for very short periods of time, few seconds at the most. He denies any exertional pain or shortness of breath. He is not dizzy nor weak or lightheaded. He denies any change in his medications or diet. He denies any recent travel, injury, known cancer or history of blood clot Related Data Home Medications Medication Instructions Recorded Confirmed carvedilol 25 mg tablet (Coreg) 50 mg PO BID ##0 05/27/11 02/10/23 clopidogrel 75 mg tablet (Plavix) 75 mg PO QPM ##0 07/21/12 02/10/23 niacin 500 mg tablet 500 mg PO Q DAY #0 tabs 06/06/18 02/10/23 amlodipine 2.5 mg tablet (Norvasc) 5 mg PO BID 10/01/18 02/10/23 iron 25 mg DAILY 10/01/18 09/19/22 isosorbide mononitrate 30 mg BID 10/01/18 09/19/22 tablet,extended release 24 hr Respironics Dreamstation CPAP #1 ea 03/27/19 09/19/22 aspirin 81 mg tablet,delayed 162 mg PO DAILY 08/03/22 02/10/23 release Previous Rx's Medication Instructions Recorded blood sugar diagnostic (True See Rx Instructions .Route 12/18/21 Metrix Glucose Test Strip) .COMPLEX #250 ea nitroglycerin 0.4 mg sublingual 0.4 mg sublingual Q5-15M PRN chest 01/05/22 tablet (Nitrostat) pain #20 tabs lancets 33 gauge (TRUEplus Lancets) See Rx Instructions .Route 07/07/22 .COMPLEX #100 ea metformin 1,000 mg tablet 1,000 mg PO BIDWMEAL #180 tabs 08/03/22 BD PEN NEEDLES 29GX1/2 #100 ea 09/07/22 losartan 50 mg tablet 50 mg PO BID #180 tabs 09/07/22 sucralfate 1 gram tablet 1 g PO BID #180 tabs 11/05/22 pantoprazole 40 mg tablet,delayed 40 mg PO DAILY #90 tabs 12/31/22 release glipizide 10 mg tablet, extended 10 mg PO DAILY #90 tabs 01/07/23 release 24 hr insulin glargine 100 unit/mL (3 50 unit (0.5 mL) SUBCUT BID #45 mL 01/07/23 mL) subcutaneous pen (Lantus Solostar U-100 Insulin) true metrix meter #1 ea 01/13/23 cyclobenzaprine 10 mg tablet 10 mg PO BEDTIME PRN muscle spasm 02/04/23 #30 tabs gabapentin 300 mg capsule 300 mg PO TID #270 tabs 02/04/23 (Neurontin) apixaban 5 mg tablet (Eliquis) 5 mg PO BID #60 tabs 02/10/23 pantoprazole 40 mg tablet,delayed 40 mg PO DAILY #30 tabs 02/10/23 release (Protonix) Allergies Allergy/AdvReac Type Severity Reaction Status Date / Time atorvastatin [ATORVASTATIN] AdvReac Severe CHEST Verified 09/19/22 11:01 TIGHTNESS morphine [MORPHINE] AdvReac Mild GI UPSET Verified 09/19/22 11:01 AND VOMITING Review of Systems Review of Systems Narrative: GENERAL: Denies chills, fatigue, malaise, fever, sweats. HEENT: Denies sinus pain, ear pain, sore throat, difficulty swallowing, dizziness. RESPIRATORY: see HPI CARDIOVASCULAR: see HPI GI: see HPI : Denies dysuria, frequency, incontinence, hematuria, urinary retention. MUSCULOSKELETAL: denies weakness, joint pain, or bony pain SKIN: Denies rash, skin lesions, or other NEUROLOGIC: Denies weakness, headache, numbness, change in speech, confusion, seizures, incoordination. PSYCHIATRIC: No concerning psychosocial issues. 12 point review of systems is negative except for those stated above Patient History Medical History Bilateral cataracts (2018) CAD (coronary artery disease) CKD stage G2/A3, GFR 60-89 and albumin creatinine ratio >300 mg/g H. 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 (~03/10/21) Obstructive sleep apnea of adult (~2012) Osteoarthritis of left knee (05/27/11) Spinal stenosis, lumbar region, with neurogenic claudication Type 2 diabetes mellitus with microalbuminuria, with long-term current use of insulin (07/21/17) Surgical History History of cardiac catheterization History of cataract surgery (2018) History of decompression of ulnar nerve History of heart artery stent History of spinal surgery History of total right knee replacement (TKR) Social History marital status: details: cornelius Montano, lives in [place] household members: spouse and family (daughter, granddaughter) lives independently: Yes caregiver/support person: No housing: house 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 Well-developed patient, in mild distress. HEAD: Atraumatic. Normocephalic. EYES: Pupils equal round and reactive. Extraocular motions intact. No scleral icterus. No injection or drainage. ENT: Nose without bleeding, purulent drainage. Throat without erythema, tonsillar hypertrophy or exudate. Airway patent. NECK: Trachea midline. Non tender CARDIOVASCULAR: Regular rate and rhythm without murmurs, gallops, or rubs. RESPIRATORY: Clear to auscultation. Breath sounds equal bilaterally. No wheezes, rales, or rhonchi. GASTROINTESTINAL: Abdomen soft, non-tender, nondistended. EXTREMITIES: No edema or joint tenderness. BACK: Nontender without deformity or crepitance. No flank tenderness. NEURO: AOx3. SKIN: No rash or erythema of visible areas Initial Vital Signs Initial Vital Signs: Vital Signs Temperature 97.4 F L 02/09/23 18:42 Pulse Rate 120 H 02/09/23 18:42 Respiratory Rate 20 02/09/23 18:42 Blood Pressure 145/86 H 02/09/23 18:42 Pulse Oximetry 98 02/09/23 18:42 Oxygen Delivery Method Room Air 02/09/23 18:42 Scores CHADS-VASc Congestive heart failure: yes Hypertension: yes Age 75 years or older: no Diabetes mellitus: yes Stroke, TIA, or TE: no Vascular disease: no Age 65 to 74 years: yes Sex category (female): Male CHADS-VASc Score: 4 Course Orders Ordered: ED Orders 02/09/23 18:45 XR chest 1V Stat COVID19 -Nasal RAPID Stat Complete Blood Count AUTO DIFF Stat Comprehensive Metabolic Panel Stat D Dimer Stat Lactate (Lactic Acid) Stat Lipase Stat Magnesium Stat PTT Partial Thromboplastin Sebastian Stat Prothrombin Time INR Stat Troponin & CK Cardiac Panel Stat 02/09/23 18:53 EKG-12 Lead Stat 02/09/23 19:05 Type and Screen Stat 02/09/23 19:25 Blood Culture Stat 02/09/23 19:55 Urine Culture Stat Urine Microscopic Stat 02/09/23 21:16 CT abdomen pelvis w con Stat CT angio chest PE protocol Stat 02/10/23 EKG-12 Lead Routine Discontinued Medications Apixaban (Apixaban 5 Mg Tablet) 5 mg PO NOW ONE Stop: 02/10/23 02:50 Aspirin (Aspirin 81 Mg Chew Tab) 324 mg PO NOW ONE Stop: 02/09/23 18:46 Last Admin: 02/09/23 23:10 Dose: Not Given Documented By: DKMaggie Reevaluation(s) Reevaluation #1: Patient largely in a sinus rhythm but does frequently go into a 2:1 and 3:1 atrial flutter with occasional PVCs and occasional multiple PVCs. He is asymptomatic during these fluctuations Consultations Consultation #1: discussed with Dr. Hogan. We have had a lengthy discussion regarding the patient's history and physical exam and full clinical course. Given that patient is largely rate controlled and lying in the 60s and 70s we agree that increasing his already significant dose of Coreg is not ideal. He does recommend initiation of DOAC, discharge and close follow up with typical return precautions Vital Signs Vital signs: Vital Signs - 8 hr 02/09/23 19:02 02/09/23 19:13 02/09/23 19:13 Pulse Rate 124 H 124 H Respiratory Rate 28 H 16 Blood Pressure 150/87 H Pulse Oximetry 100 99 02/09/23 19:30 02/09/23 19:31 02/09/23 19:31 Pulse Rate 123 H 123 H Respiratory Rate 23 23 Blood Pressure 156/91 H Pulse Oximetry 99 98 02/09/23 19:53 02/09/23 19:53 02/09/23 20:00 Pulse Rate 124 H 123 H Respiratory Rate 21 22 Blood Pressure 159/72 H Pulse Oximetry 99 99 02/09/23 20:01 02/09/23 20:01 02/09/23 20:30 Pulse Rate 89 95 H Respiratory Rate 21 22 Blood Pressure 147/67 H Pulse Oximetry 98 98 02/09/23 20:31 02/09/23 20:31 02/09/23 21:00 Pulse Rate 123 H 99 H Respiratory Rate 23 Blood Pressure 137/112 H Pulse Oximetry 100 02/09/23 21:01 02/09/23 21:01 02/09/23 21:30 Pulse Rate 101 H 84 Respiratory Rate 19 17 Blood Pressure 161/79 H Pulse Oximetry 99 99 02/09/23 21:31 02/09/23 21:31 02/09/23 22:00 Pulse Rate 116 H 94 H Respiratory Rate 19 15 Blood Pressure 166/89 H Pulse Oximetry 99 99 02/09/23 22:02 02/09/23 22:02 02/09/23 22:30 Pulse Rate 70 85 Respiratory Rate 22 22 Blood Pressure 158/98 H Pulse Oximetry 99 98 02/09/23 22:31 02/09/23 22:31 02/09/23 23:00 Pulse Rate 84 Respiratory Rate 22 Blood Pressure 168/105 H 170/85 H Pulse Oximetry 98 02/09/23 23:00 02/09/23 23:30 02/09/23 23:31 Pulse Rate 127 H 86 Respiratory Rate 21 22 Blood Pressure 148/81 H Pulse Oximetry 98 98 02/09/23 23:31 02/10/23 00:00 02/10/23 00:01 Pulse Rate 92 H 67 Respiratory Rate 24 19 Blood Pressure 165/73 H Pulse Oximetry 98 99 02/10/23 00:01 02/10/23 00:30 02/10/23 00:31 Pulse Rate 60 59 L Respiratory Rate 19 19 Blood Pressure 152/99 H Pulse Oximetry 98 98 02/10/23 00:31 02/10/23 01:00 02/10/23 01:01 Pulse Rate 48 L 45 L Respiratory Rate 19 17 Blood Pressure 155/74 H Pulse Oximetry 99 99 02/10/23 01:01 02/10/23 01:30 02/10/23 01:31 Pulse Rate 51 L 69 Respiratory Rate 14 15 Blood Pressure 159/67 H Pulse Oximetry 98 97 02/10/23 01:31 02/10/23 02:00 02/10/23 02:01 Pulse Rate 62 60 Respiratory Rate 14 19 Blood Pressure 146/75 H Pulse Oximetry 97 99 02/10/23 02:01 Pulse Rate 54 L Respiratory Rate 23 Blood Pressure Pulse Oximetry 99 Medical Decision Making Lab Data 02/09/23 18:45 02/09/23 18:45 Labs: Lab Results 02/09/23 02/09/23 02/09/23 Range/Units 18:45 18:45 18:45 WBC 6.7 (4.5-11.0) X10^3/uL RBC 4.05 L (4.5-5.9) X10^6/uL Hgb 11.9 L (13.5-17.5) g/dL Hct 34.8 L (41-53) % MCV 86.0 (80-100) fL MCH 29.5 (26-34) PG MCHC 34.3 (30-36) % RDW 14.5 (11.6-14.8) % Plt Count 229 (150-400) X10^3/uL Neut % (Auto) 61.0 (50-75) % Lymph % (Auto) 26.4 (25-40) % [place] % (Auto) 7.1 (3-14) % Eos % (Auto) 4.6 H (2-4) % Baso % (Auto) 0.9 (0-2) % Neut # (Auto) 4100 (5234-3362) /uL Lymph # (Auto) 1800 (3724-5218) /uL [place] # (Auto) 500 (0-900) /uL Eos # (Auto) 300 (0-450) /uL Baso # (Auto) 100 (0-100) /uL PT 12.0 (10.1-12.7) SECONDS INR 1.0 (0.9-1.3) APTT 32 (26-36) SECONDS D-Dimer (<500) ng/ml Sodium 141 (137-145) mmol/L Potassium 3.8 (3.4-5.1) mmol/L Chloride 106 (98-107) mmol/L Carbon Dioxide 26 (22-32) mmol/L BUN 15 (9-20) mg/dL Creatinine 0.96 (0.66-1.25) mg/dL Estimated GFR > 60 (>60) mL/min BUN/Creatinine Ratio 15.6 (6-22) Glucose 171 H (80-110) mg/dL Lactate (0.7-2.1) mmol/L Calcium 8.7 (8.4-10.2) mg/dL Magnesium 1.8 (1.6-2.3) mg/dL Total Bilirubin 0.6 (0.2-1.3) mg/dL AST 22 (17-59) IU/L ALT 23 (<50) IU/L Alkaline Phosphatase 68 (38-126) U/L Total Creatine Kinase 55 (55-170) U/L CK-MB (CK-2) TNP CK-MB (CK-2) Rel Index TNP Troponin I < 0.012 (0.01-0.034) ng/mL Total Protein 7.5 (6.3-8.2) g/dL Albumin 4.2 (3.5-5.0) g/dL Globulin 3.3 (1.7-4.1) g/dL Albumin/Globulin Ratio 1.3 (1.0-2.8) Lipase 122 (23-300) U/L Urine RBC (0-5/HPF) Urine WBC (0-5/HPF) Urine Bacteria (None) Ur Culture Indicated? Blood Type Antibody Screen 02/09/23 02/09/23 02/09/23 Range/Units 18:45 18:45 19:05 WBC (4.5-11.0) X10^3/uL RBC (4.5-5.9) X10^6/uL Hgb (13.5-17.5) g/dL Hct (41-53) % MCV (80-100) fL MCH (26-34) PG MCHC (30-36) % RDW (11.6-14.8) % Plt Count (150-400) X10^3/uL Neut % (Auto) (50-75) % Lymph % (Auto) (25-40) % [place] % (Auto) (3-14) % Eos % (Auto) (2-4) % Baso % (Auto) (0-2) % Neut # (Auto) (0041-5215) /uL Lymph # (Auto) (7352-4308) /uL [place] # (Auto) (0-900) /uL Eos # (Auto) (0-450) /uL Baso # (Auto) (0-100) /uL PT (10.1-12.7) SECONDS INR (0.9-1.3) APTT (26-36) SECONDS D-Dimer 930 H (<500) ng/ml Sodium (137-145) mmol/L Potassium (3.4-5.1) mmol/L Chloride (98-107) mmol/L Carbon Dioxide (22-32) mmol/L BUN (9-20) mg/dL Creatinine (0.66-1.25) mg/dL Estimated GFR (>60) mL/min BUN/Creatinine Ratio (6-22) Glucose (80-110) mg/dL Lactate 1.6 (0.7-2.1) mmol/L Calcium (8.4-10.2) mg/dL Magnesium (1.6-2.3) mg/dL Total Bilirubin (0.2-1.3) mg/dL AST (17-59) IU/L ALT (<50) IU/L Alkaline Phosphatase (38-126) U/L Total Creatine Kinase (55-170) U/L CK-MB (CK-2) CK-MB (CK-2) Rel Index Troponin I (0.01-0.034) ng/mL Total Protein (6.3-8.2) g/dL Albumin (3.5-5.0) g/dL Globulin (1.7-4.1) g/dL Albumin/Globulin Ratio (1.0-2.8) Lipase (23-300) U/L Urine RBC (0-5/HPF) Urine WBC (0-5/HPF) Urine Bacteria (None) Ur Culture Indicated? Blood Type O Positive Antibody Screen Negative 02/09/23 Range/Units 19:55 WBC (4.5-11.0) X10^3/uL RBC (4.5-5.9) X10^6/uL Hgb (13.5-17.5) g/dL Hct (41-53) % MCV (80-100) fL MCH (26-34) PG MCHC (30-36) % RDW (11.6-14.8) % Plt Count (150-400) X10^3/uL Neut % (Auto) (50-75) % Lymph % (Auto) (25-40) % [place] % (Auto) (3-14) % Eos % (Auto) (2-4) % Baso % (Auto) (0-2) % Neut # (Auto) (9830-9430) /uL Lymph # (Auto) (3917-0536) /uL [place] # (Auto) (0-900) /uL Eos # (Auto) (0-450) /uL Baso # (Auto) (0-100) /uL PT (10.1-12.7) SECONDS INR (0.9-1.3) APTT (26-36) SECONDS D-Dimer (<500) ng/ml Sodium (137-145) mmol/L Potassium (3.4-5.1) mmol/L Chloride (98-107) mmol/L Carbon Dioxide (22-32) mmol/L BUN (9-20) mg/dL Creatinine (0.66-1.25) mg/dL Estimated GFR (>60) mL/min BUN/Creatinine Ratio (6-22) Glucose (80-110) mg/dL Lactate (0.7-2.1) mmol/L Calcium (8.4-10.2) mg/dL Magnesium (1.6-2.3) mg/dL Total Bilirubin (0.2-1.3) mg/dL AST (17-59) IU/L ALT (<50) IU/L Alkaline Phosphatase (38-126) U/L Total Creatine Kinase (55-170) U/L CK-MB (CK-2) CK-MB (CK-2) Rel Index Troponin I (0.01-0.034) ng/mL Total Protein (6.3-8.2) g/dL Albumin (3.5-5.0) g/dL Globulin (1.7-4.1) g/dL Albumin/Globulin Ratio (1.0-2.8) Lipase (23-300) U/L Urine RBC 0-1/hpf (0-5/HPF) Urine WBC 0-1/hpf (0-5/HPF) Urine Bacteria None seen (None) Ur Culture Indicated? Specimen cultured Blood Type Antibody Screen Urine Dip Bedside Urine Glucose Negative Bedside Urine Bilirubin - Negative Bedside Urine Ketone - Negative Urine Specific [place] 1.010 Bedside Urine Occult Blood - Negative Bedside Urine pH 6.5 Bedside Urine Protein - Negative Bedside Urine Urobilinogen - Negative Bedside Urine Nitrite - Negative Bedside Urine Leukocytes +/- 15 Esterase Point of care testing: Urine Dip Bedside Urine Glucose Negative Bedside Urine Bilirubin - Negative Bedside Urine Ketone - Negative Urine Specific [place] 1.010 Bedside Urine Occult Blood - Negative Bedside Urine pH 6.5 Bedside Urine Protein - Negative Bedside Urine Urobilinogen - Negative Bedside Urine Nitrite - Negative Bedside Urine Leukocytes +/- 15 Esterase MDM Narrative Medical decision making narrative: CC: 73-year-old male with abdominal pain and occasional episodes of shortness of breath and palpitations Complicating co-morbidities: age, coronary artery disease, hypertension, hyperlipidemia, BMI 38 Data collected from: Patient Medical records reviewed: Prior notes reviewed in our EMR Differential considered, but not limited to: bowel obstruction, pancreatitis, new onset AFib, pulmonary embolism versus other Exam documented above, pertinent findings include: occasional elevated heart rate, though quite brief, lungs clear, abdomen is soft and nontender Lab Test results independently reviewed as above. Pertinent findings: D-dimer above age corrected cutoff Independently reviewed EKG as above Imaging studies independently reviewed: CTA for PE notes no significant finding, CT Abd/Pelvis notes no significant finding CONSULTS: Dr. Hogan (Cardio at [place]) see details above Treatments: Eliquis Re-evaluations: Patient essentially asymptomatic for majority of visit, heart rate largely in the 60s and 70s Discussion: Patient presents largely with complaint of epigastric discomfort primarily when he lays flat that seems to improve when he eats. With this epigastric pain he sometimes feels short of breath. He denies any chest pain. He denies any history of atrial fib or atrial flutter and found to fluctuate between at times a slow AFib, infrequently a fast AFib, atrial flutter and frequent PVCs. Patient will need initiation of anticoagulation given his high-risk for stroke per chads Vasc. Is abdominal pain seems most likely related to reflux or perhaps an early ulcer, labs looking at gallbladder, pancreas and liver are reassuring and imaging has no significant findings. Patient appropriate for discharge. Both he and understand and agree with the diagnosis and plan Disposition: see below, along with detailed discharge instructions that have been reviewed with patient as well as indications for ED re-evaluation and additional outpatient follow up Discharge Plan Departure Patient Disposition: Home Clinical Impression: Atrial fib/flutter, transient, Abdominal pain, epigastric Instructions: Atrial Fibrillation, DI for Epigastric Pain Activity Restrictions/Additional Instructions: *You have been diagnosed with [newly discovered atrial flutter and atrial fibrillation as well as epigastric pain. As we discussed your history and physical exam as well as labs and imaging are reassuring and there are no other significant abnormalities that would require a specific or immediate intervention] *What to do: *Please continue to take your regular medications as directed. [ x] New medication prescriptions sent to your pharmacy: [ [facility]] [ ] New medication written as a paper prescription [ ] No new medications given *Please follow up with your primary care provider in 2-3 days, call for an appointment. Let them know you were seen in the Emergency Department and that we ask that you be seen in follow up. We will electronically transmit a record of today's note if your PCP is in our system *As we discussed, please reach out to Dr. Cook's office later today, let them know that you were seen and evaluated in the emergency department and we would like you seen in follow-up. *Return to Emergency Department if you should have any new, worsening or concerning symptoms, such as [fever greater than 101 F, shaking chills, worsening pain, persistent vomiting or other bothersome symptoms] Prescriptions: New pantoprazole [Protonix] 40 mg tablet,delayed release (DR/EC) 40 mg PO DAILY Qty: 30 0RF Eliquis 5 mg tablet 5 mg PO BID Qty: 60 0RF No Action carvedilol [Coreg] 25 MG tablet 50 mg PO BID Qty: 0 clopidogrel [Plavix] 75 MG tablet 75 mg PO QPM Qty: 0 True Metrix Glucose Test Strip Strip See Rx Instructions .ROUTE .COMPLEX Qty: 250 6RF Dose Instruction: CHECK BLOOD SUGAR 4 TIMES A DAY Rx Instructions: CHECK BLOOD SUGAR 4 TIMES A DAY lancets [TRUEplus Lancets] 33 gauge misc See Rx Instructions .ROUTE .COMPLEX Qty: 100 5RF Dose Instruction: CHECK BLODD SUGAR 4 TIMES A DAY Rx Instructions: CHECK BLODD SUGAR 4 TIMES A DAY losartan 50 mg tablet 50 mg PO BID Qty: 180 1RF (DME) BD PEN NEEDLES 29GX1/2 Qty: 100 5RF Dose Instruction: As directed Rx Instructions: USE FOR INSULIN INJECTIONS sucralfate 1 gram tablet 1 g PO BID Qty: 180 1RF pantoprazole 40 mg tablet,delayed release (DR/EC) 40 mg PO DAILY Qty: 90 1RF glipizide 10 mg tablet extended release 24hr 10 mg PO DAILY Qty: 90 0RF Hold Instructions: Needs labs Lantus Solostar U-100 Insulin 100 unit/mL (3 mL) insulin pen 50 unit SUBCUT BID Qty: 45 0RF Hold Instructions: Needs labs (DME) true metrix meter See Rx Instructions .Route .MEDSUPPLY Qty: 1 0RF Rx Instructions: As directed to test blood sugar cyclobenzaprine 10 mg tablet 10 mg PO BEDTIME PRN (Reason: muscle spasm) Qty: 30 0RF gabapentin [Neurontin] 300 mg capsule 300 mg PO TID Qty: 270 0RF metformin 1,000 mg tablet 1,000 mg PO BIDWMEAL Qty: 180 1RF Hold Instructions: Needs labs aspirin 81 mg tablet,delayed release (DR/EC) 162 mg PO DAILY niacin 500 mg tablet 500 mg PO Q DAY Qty: 0 nitroglycerin [Nitrostat] 0.4 mg tablet, sublingual 0.4 mg SL Q5-15M PRN (Reason: chest pain) Qty: 20 5RF Rx Instructions: until response; do not exceed 3 doses per episode isosorbide mononitrate 30 mg tablet extended release 24 hr BID Patient Comments: TAKE 2 TABLETS BY MOUTH DAILY amlodipine [Norvasc] 2.5 mg tablet 5 mg PO BID iron 25 mg DAILY (DME) Respironics Dreamstation CPAP Qty: 1 Dose Instruction: As directed Patient Comments: Pressure: 6-12 cmH2O DME: [facility] Rx Instructions: As directed Referrals: Fady Apple MD [Primary Care Provider] - Preeti Deleon MD [Physician] - Tanner Cook MD [Non-Staff] - Stand Alone Forms: Patient Portal/API
[2023-02-09 19:00] LABS: Add Manual Diff / Slide Review NO; Basophils Absolute Auto 100 /uL (0-100); Basophils Percent Auto 0.9 % (0-2); Eosinophils Absolute Auto 300 /uL (0-450); Eosinophils Percent Auto 4.6 % (2-4); Hematocrit 34.8 % (41-53); Hemoglobin 11.9 g/dL (13.5-17.5); Lymphocytes Absolute Auto 1800 /uL (1100-4500); Lymphocytes Percent Auto 26.4 % (25-40); Mean Corpuscular HGB Conc 34.3 % (30-36); Mean Corpuscular Hemoglobin 29.5 PG (26-34); Monocytes Absolute Auto 500 /uL (0-900); Monocytes Percent Auto 7.1 % (3-14); Neutrophils Absolute Auto 4100 /uL (1500-7000); Platelet Count 229 X10^3/uL (150-400); Red Blood Cell Count 4.05 X10^6/uL (4.5-5.9); Red Cell Distribution Width 14.5 % (11.6-14.8); White Blood Cell Count 6.7 X10^3/uL (4.5-11.0)
[2023-02-09 19:10] LABS: PTT Partial Thromboplastin Tim 32 SECONDS (26-36)
[2023-02-09 19:12] LABS: Alanine Aminotransferase 23 IU/L (<50); Albumin 4.2 g/dL (3.5-5.0); Albumin Globulin Ratio 1.3 (1.0-2.8); Alkaline Phosphatase 68 U/L (38-126); Aspartate Aminotransferase 22 IU/L (17-59); BUN Creatinine Ratio 15.6 (6-22); Bilirubin Total 0.6 mg/dL (0.2-1.3); Blood Urea Nitrogen 15 mg/dL (9-20); Calcium 8.7 mg/dL (8.4-10.2); Carbon Dioxide 26 mmol/L (22-32); Chloride 106 mmol/L (98-107); Creatine Kinase 55 U/L (55-170); Estimated Glomerular Filt Rate > 60 mL/min (>60); Globulin 3.3 g/dL (1.7-4.1); Glucose 171 mg/dL (80-110); HEMOLYSIS < 15 (0-50); Lactate (Lactic Acid) 1.6 mmol/L (0.7-2.1); Lipase 122 U/L (23-300); Magnesium 1.8 mg/dL (1.6-2.3); Potassium 3.8 mmol/L (3.4-5.1); Sodium 141 mmol/L (137-145); Total Protein 7.5 g/dL (6.3-8.2)
[2023-02-09 19:17] LABS: D Dimer 930 ng/ml (<500)
[2023-02-09 19:23] LABS: Troponin I < 0.012 ng/mL (0.01-0.034)
[2023-02-09 20:33] LABS: Bacteria Urine None Seen; RBC Urine 0-1/HPF (0-5/HPF); WBC Urine 0-1/HPF (0-5/HPF)
[2023-02-09 20:34] LABS: Culture Indicated Urine Specimen Cultured
--- NOTE | 2023-02-09 21:16 | DI.CT.S_ITS ---
PROCEDURE: CT ANGIO CHEST PE PROTOCOL INDICATIONS: tachycardia, SOB TECHNIQUE: After the administration of intravenous contrast, 2 mm thick sections acquired from the pulmonary apices to the posterior costophrenic angles. 3-dimensional maximum intensity projection (MIP) coronal and sagittal reformats were then acquired through the thorax. For radiation dose reduction, the following was used: automated exposure control, adjustment of mA and/or kV according to patient size. COMPARISON: None. FINDINGS: Image quality: Excellent. Pulmonary arteries: Pulmonary arteries demonstrate no intraluminal filling defects to suggest central pulmonary embolism. There is enlargement of the pulmonary arteries, with the main pulmonary artery measuring up to 4.2 cm suggestive of pulmonary arterial hypertension. Lower Neck: No lymphadenopathy by size criteria. Thyroid: Visualized thyroid demonstrates no discrete nodules. Axillae: No lymphadenopathy by size criteria. Chest Wall: Unremarkable. Bones: Visualized osseous structures demonstrate no suspicious lesions. Lungs and Airways: No acute consolidation. Mild dependent atelectasis demonstrated bilaterally. The trachea and central airways are patent. Pleura: No pneumothorax. There is a small right pleural effusion. Heart: Heart size is normal. No pericardial effusion. Thoracic Vessels: The thoracic aorta is normal in size. Mediastinum and Chiqu[place]: No lymphadenopathy by size criteria. Esophagus: No wall thickening. No hiatal hernia. Abdomen: Visualized upper abdominal solid organs appear normal in the early arterial phase of enhancement. IMPRESSION: 1. No evidence of pulmonary embolism. 2. Enlargement of the pulmonary arteries suggestive of pulmonary arterial hypertension. 3. Small right pleural effusion. 4. No acute airspace consolidation. Dictated by: Mohinder Estrella M.D. on 02/09/2023 at 23:04 Approved by: Mohinder Estrella M.D. on 02/09/2023 at 23:06
--- NOTE | 2023-02-09 21:16 | DI.CT.S_ITS ---
PROCEDURE: CT ABDOMEN PELVIS W CON INDICATIONS: abdominal pain TECHNIQUE: After the administration of IV contrast, axial sections were acquired from the lung bases to the pubic symphysis. Coronal and sagittal reformats were performed. For radiation dose reduction, the following was used: automated exposure control, adjustment of mA and/or kV according to patient size. COMPARISON: [facility], CT, KIDNEY/ URETER/BLADDER, 08/02/2014, 20:22. FINDINGS: Image quality: There is metallic streak artifact from patient's surgical hardware in the lower lumbar spine. Lung bases: There is mild scarring and atelectasis in the lung bases. Heart: Heart is normal in size. ABDOMEN: Liver: No mass lesion. Gallbladder: Surgically absent. Biliary ducts: No biliary ductal dilatation. Pancreas: Unremarkable. Spleen: Normal in size. Adrenal Glands: No adrenal nodules. Kidneys and Ureters: No hydronephrosis. Stomach and Bowel: Stomach, small bowel loops, and colon are normal in caliber and wall thickness. The appendix is normal. Peritoneum: No abnormal intraperitoneal fluid. No free air. Ventral Wall: No hernia. Abdominal Nodes: No retroperitoneal or mesenteric adenopathy by size criteria. Vessels: Aorta and inferior vena cava are normal in size. PELVIS: Pelvic Organs: Unremarkable. Bladder: Unremarkable. Pelvic Nodes: No enlarged lymph nodes. Miscellaneous: No inguinal hernias are seen. Bones: There are postsurgical changes status post posterior fixation at L3 through L5. Visualized osseous structures demonstrate no suspicious focal lesions. IMPRESSION: 1. No definite acute intra-abdominal abnormality. Dictated by: Mohinder Estrella M.D. on 02/09/2023 at 23:07 Approved by: Mohinder Estrella M.D. on 02/09/2023 at 23:09
[2023-02-10] VITALS (13 sets, daily range): BP systolic 146–165; BP diastolic 67–99; PULSE 45–69; RESP 7–23; O2SAT 97–99
[2023-02-10] MEDS: APIXABAN 5 MG TABLET PO (02:57)
== END 2023-02-10 03:07 | disposition home or self-care (01) ==
PROVIDERS: Emergency Provider Emergency Medicine; PCP Student in an Organized Health Care Education/Training Program
DX: I48.91 Unspecified atrial fibrillation (principal); Z79.01 Long term (current) use of anticoagulants; R10.13 Epigastric pain; R06.00 Dyspnea, unspecified; Z79.899 Other long term (current) drug therapy
CPT/HCPCS: 36415; 71045; 71275; 74177; 80053; 81003; 81015; 82550; 83605; 83690; 83735; 84484; 85025; 85379; 85610; 85730; 86850; 86900; 86901; 87040; 87086; 93005; 99284; Q9967

== ENCOUNTER → 2023-02-15 09:48 | Outpatient (CLI) | payer MEDICARE, OTHER, SELFPAY ==
[2023-02-15 12:15] LABS: Cholesterol 105 mg/dL (140-199); HDL Cholesterol 25 mg/dL (40-60); LDL Cholesterol Calculated 57 mg/dL (<100); Triglycerides 116 mg/dL (35-150)
== END ==
PROVIDERS: PCP Student in an Organized Health Care Education/Training Program; Referring Provider Nurse Practitioner; Visit Provider Nurse Practitioner
DX: I25.110 Atherosclerotic heart disease of native coronary artery with unstable angina pectoris (principal); E78.00 Pure hypercholesterolemia, unspecified; E11.69 Type 2 diabetes mellitus with other specified complication; E78.5 Hyperlipidemia, unspecified
CPT/HCPCS: 36415; 80061

== ENCOUNTER → 2023-03-02 14:15 | Outpatient (CLI) | payer MEDICARE, OTHER, SELFPAY ==
--- NOTE | 2023-03-02 | DI.NM.S_ITS ---
PROCEDURE: NM KIMI PERF SPECT SINGLE STUDY Resting myocardial perfusion SPECT, with gated imaging and ejection fraction RADIOPHARMACEUTICAL: 25.1 mCi 99m-Tc sestamibi intravenously. INDICATIONS: Atherosclerotic heart disease of [place] coronary artery with TECHNIQUE: Radiopharmaceutical was injected at rest. SPECT images were obtained. SPECT myocardial perfusion images were displayed in short axis, horizontal long axis, and vertical long axis views. Gated images were reviewed using [employer] software. COMPARISON: None. FINDINGS: Raw data: There is good tracer uptake by the myocardium. No significant motion artifacts. Left ventricle function: Gated images demonstrate mild hypokinesis of the inferior and apical lo. Left ventricle resting end-diastolic volume is 291 mL. Left ventricle resting ejection fraction is 52%; normal values are above 45%. Myocardial perfusion: There is a severe perfusion defect in the basal to mid inferior wall, apical inferior wall, and the apex suggesting prior infarction. Unable to comment on ischemia as stress images not obtained as the patient didn't return for the stress portion. IMPRESSION: Abnormal resting nuclear perfusion images. There is a severe perfusion defect in the basal to mid inferior wall, apical inferior wall, and the apex suggesting prior infarction. Unable to comment on ischemia as stress images not obtained as the patient didn't return for the stress portion. Enlarged left ventricle (LVEDD 291cc) with low normal systolic function (EF 52%). There is mild hypokinesis of the inferior and apical lo. Dictated by: Nimco Healy MD on 03/17/2023 at 13:31 Approved by: Nimco Healy MD on 03/17/2023 at 13:33
== END ==
PROVIDERS: PCP Pediatrics; Referring Provider Nurse Practitioner; Visit Provider Nurse Practitioner
DX: R94.39 Abnormal result of other cardiovascular function study (principal); I25.10 Atherosclerotic heart disease of native coronary artery without angina pectoris
CPT/HCPCS: 78451; A9502

== ENCOUNTER → 2023-05-20 15:03 | Outpatient (CLI) | payer MEDICARE, OTHER, SELFPAY ==
[2023-05-20 15:30] LABS: Add Manual Diff / Slide Review NO; Basophils Absolute Auto 100 /uL (0-100); Basophils Percent Auto 0.9 % (0-2); Eosinophils Absolute Auto 200 /uL (0-450); Eosinophils Percent Auto 3.7 % (2-4); Hematocrit 34.1 % (41-53); Hemoglobin 11.7 g/dL (13.5-17.5); Lymphocytes Absolute Auto 1500 /uL (1100-4500); Lymphocytes Percent Auto 25.8 % (25-40); Mean Corpuscular HGB Conc 34.3 % (30-36); Mean Corpuscular Hemoglobin 29.4 PG (26-34); Mean Corpuscular Volume 85.8 fL (80-100); Monocytes Absolute Auto 400 /uL (0-900); Monocytes Percent Auto 5.9 % (3-14); Neutrophils Absolute Auto 3800 /uL (1500-7000); Neutrophils Percent Auto 63.7 % (50-75); Platelet Count 213 X10^3/uL (150-400); Red Blood Cell Count 3.98 X10^6/uL (4.5-5.9); Red Cell Distribution Width 14.3 % (11.6-14.8)
[2023-05-20 16:04] LABS: BUN Creatinine Ratio 16.2 (6-22); Blood Urea Nitrogen 17 mg/dL (9-20); Calcium 8.6 mg/dL (8.4-10.2); Carbon Dioxide 23 mmol/L (22-32); Chloride 107 mmol/L (98-107); Estimated Glomerular Filt Rate > 60 mL/min (>60); Glucose 215 mg/dL (80-110); HEMOLYSIS < 15 (0-50); Sodium 138 mmol/L (137-145)
== END ==
PROVIDERS: PCP Pediatrics; Referring Provider Internal Medicine Cardiovascular Disease; Visit Provider Internal Medicine Cardiovascular Disease
DX: I48.3 Typical atrial flutter (principal)
CPT/HCPCS: 36415; 80048; 85025

== ENCOUNTER → 2024-12-13 09:15 | Outpatient (CLI) | payer MEDICARE, OTHER, SELFPAY ==
[2024-12-13 10:17] LABS: Add Manual Diff / Slide Review NO; Basophils Absolute Auto 100 /uL (0-100); Eosinophils Absolute Auto 300 /uL (0-450); Eosinophils Percent Auto 5.6 % (2-4); Hematocrit 34.7 % (41-53); Hemoglobin 11.9 g/dL (13.5-17.5); Lymphocytes Absolute Auto 1900 /uL (1100-4500); Mean Corpuscular HGB Conc 34.2 % (30-36); Mean Corpuscular Hemoglobin 29.9 PG (26-34); Mean Corpuscular Volume 87.6 fL (80-100); Monocytes Absolute Auto 500 /uL (0-900); Monocytes Percent Auto 8.4 % (3-14); Neutrophils Absolute Auto 3300 /uL (1500-7000); Platelet Count 260 X10^3/uL (150-400); Red Blood Cell Count 3.96 X10^6/uL (4.5-5.9); Red Cell Distribution Width 14.4 % (11.6-14.8); White Blood Cell Count 6.1 X10^3/uL (4.5-11.0)
[2024-12-13 10:18] LABS: Creatinine Urine Random 51.19 mg/dL
[2024-12-13 10:23] LABS: Hemoglobin A1C% w Est Avg Glu 5.7 % (4.0-6.0)
[2024-12-13 10:28] LABS: Alanine Aminotransferase 29 IU/L (<50); Albumin 3.8 g/dL (3.5-5.0); Albumin Globulin Ratio 1.5 (1.0-2.8); Alkaline Phosphatase 70 U/L (38-126); Aspartate Aminotransferase 31 IU/L (17-59); BUN Creatinine Ratio 15.7 (6-22); Bilirubin Total 0.6 mg/dL (0.2-1.3); Blood Urea Nitrogen 18 mg/dL (9-20); Calcium 8.8 mg/dL (8.4-10.2); Carbon Dioxide 25 mmol/L (22-32); Chloride 107 mmol/L (98-107); Cholesterol 133 mg/dL (140-199); Estimated Glomerular Filt Rate > 60 mL/min (>60); Globulin 2.6 g/dL (1.7-4.1); Glucose 137 mg/dL (80-110); HDL Cholesterol 28 mg/dL (40-60); HEMOLYSIS < 15 (0-50); LDL Cholesterol Calculated 45 mg/dL (<100); Sodium 141 mmol/L (137-145); Total Protein 6.4 g/dL (6.3-8.2); Triglycerides 301 mg/dL (35-150)
[2024-12-13 10:38] LABS: Microalbumin Urine Random > 114.0 mg/dL (0-1.6)
== END ==
PROVIDERS: PCP Family Medicine; Referring Provider Family Medicine; Visit Provider Family Medicine
DX: N18.2 Chronic kidney disease, stage 2 (mild) (principal); E11.69 Type 2 diabetes mellitus with other specified complication; E78.5 Hyperlipidemia, unspecified; E11.29 Type 2 diabetes mellitus with other diabetic kidney complication; R80.9 Proteinuria, unspecified; Z79.4 Long term (current) use of insulin; E66.9 Obesity, unspecified; G47.33 Obstructive sleep apnea (adult) (pediatric); I10 Essential (primary) hypertension
CPT/HCPCS: 36415; 80053; 80061; 82043; 82570; 83036; 85025

== ENCOUNTER → 2025-01-31 11:31 | Outpatient (CLI) | payer MEDICARE, OTHER, SELFPAY ==
[2025-01-31 13:38] LABS: BUN Creatinine Ratio 14.4 (6-22); Blood Urea Nitrogen 20 mg/dL (9-20); Calcium 8.9 mg/dL (8.4-10.2); Carbon Dioxide 24 mmol/L (22-32); Chloride 105 mmol/L (98-107); Estimated Glomerular Filt Rate 53 mL/min (>60); Glucose 199 mg/dL (70-99); HEMOLYSIS < 15 (0-50); Potassium 4.5 mmol/L (3.4-5.1); Sodium 138 mmol/L (137-145)
== END ==
PROVIDERS: PCP Family Medicine; Referring Provider Internal Medicine Cardiovascular Disease; Visit Provider Internal Medicine Cardiovascular Disease
DX: I10 Essential (primary) hypertension (principal); I48.0 Paroxysmal atrial fibrillation; I49.3 Ventricular premature depolarization; I25.10 Atherosclerotic heart disease of native coronary artery without angina pectoris
CPT/HCPCS: 36415; 80048

== ENCOUNTER → 2025-03-16 10:31 | Outpatient (CLI) | payer MEDICARE, OTHER, SELFPAY ==
[2025-03-16 11:08] LABS: Add Manual Diff / Slide Review NO; Basophils Absolute Auto 0 /uL (0-100); Basophils Percent Auto 0.6 % (0-2); Eosinophils Absolute Auto 200 /uL (0-450); Eosinophils Percent Auto 3.3 % (2-4); Hematocrit 34.9 % (41-53); Hemoglobin 11.8 g/dL (13.5-17.5); Lymphocytes Absolute Auto 2000 /uL (1100-4500); Lymphocytes Percent Auto 28.9 % (25-40); Mean Corpuscular HGB Conc 33.8 % (30-36); Mean Corpuscular Volume 88.9 fL (80-100); Monocytes Absolute Auto 500 /uL (0-900); Monocytes Percent Auto 6.8 % (3-14); Neutrophils Absolute Auto 4100 /uL (1500-7000); Neutrophils Percent Auto 60.4 % (50-75); Platelet Count 241 X10^3/uL (150-400); Red Blood Cell Count 3.92 X10^6/uL (4.5-5.9); Red Cell Distribution Width 13.7 % (11.6-14.8); White Blood Cell Count 6.8 X10^3/uL (4.5-11.0)
[2025-03-16 11:13] LABS: Hemoglobin A1C% w Est Avg Glu 6.1 % (4.0-6.0)
[2025-03-16 11:51] LABS: HEMOLYSIS < 15 (0-50); Iron 85 ug/dL (49-181)
[2025-03-16 12:01] LABS: Percent Iron Saturation 32 % (20-50); Total Iron Binding Capacity 262 ug/dL (261-462); Transferrin 208 mg/dL (206-381)
== END ==
PROVIDERS: PCP Family Medicine; Referring Provider Family Medicine; Visit Provider Family Medicine
DX: N18.2 Chronic kidney disease, stage 2 (mild) (principal); E11.29 Type 2 diabetes mellitus with other diabetic kidney complication; D63.8 Anemia in other chronic diseases classified elsewhere; R80.9 Proteinuria, unspecified; Z79.4 Long term (current) use of insulin; I12.9 Hypertensive chronic kidney disease with stage 1 through stage 4 chronic kidney disease, or unspecified chronic kidney disease
CPT/HCPCS: 36415; 83036; 83540; 83550; 85025

== ENCOUNTER 2025-04-10 13:02 | Emergency (ER) | payer MEDICARE, OTHER, SELFPAY ==
[2025-04-10 13:31] VITALS: BP 134/65; PULSE 67; RESP 18; TEMP 36.9; O2SAT 98; BMI 36.2
--- NOTE | 2025-04-10 17:22 | ED.MALEGU ---
HPI - Male Genitourinary General Chief complaint: Urogenital-Male Stated complaint: UTI possible side effects from meds Time Seen by Provider: 04/10/25 13:55 Source: patient Mode of arrival: Ambulatory History of Present Illness HPI Narrative: 75-year-old male presents to the ED status post feeling feverish with chills earlier this morning. Patient states that 5 days ago, he felt symptoms of a UTI including suprapubic discomfort, dysuria, urinary frequency. Patient has had several UTIs and recognize the symptoms and called his doctor's office. He was prescribed Bactrim which he has been taking for the last 4 days. This morning, patient endorses feeling feverish along with chills for a brief time. Patient is symptom-free in the ED today. No nausea, vomiting, chest pain, shortness of breath, abdominal pain, lightheadedness, dizziness, syncope. Patient endorses that his urinary symptoms are improving significantly with the antibiotics. Related Data Home Medications ?Medication ?Instructions ?Recorded ?Confirmed niacin 500 mg tablet 500 mg PO Q DAY #0 tabs 06/06/18 03/16/25 iron 25 mg DAILY 10/01/18 03/16/25 Respironics Dreamstation CPAP #1 ea 03/27/19 03/16/25 spironolactone 25 mg tablet 25 mg PO DAILY 03/16/25 03/16/25 Previous Rx's ?Medication ?Instructions ?Recorded true metrix meter #1 ea 01/13/23 amlodipine 2.5 mg tablet (Norvasc) 5 mg (2 x 2.5 mg) PO BID #90 tabs 10/27/23 blood sugar diagnostic (True See Rx Instructions .Route 10/27/23 Metrix Glucose Test Strip) .COMPLEX #250 ea carvedilol 25 mg tablet (Coreg) 50 mg (2 x 25 mg) PO BID #180 tabs 10/27/23 lancets 33 gauge (TRUEplus Lancets) See Rx Instructions .Route 10/27/23 .COMPLEX #100 ea losartan 50 mg tablet 50 mg PO BID #180 tabs 10/27/23 nitroglycerin 0.4 mg sublingual 0.4 mg sublingual Q5-15M PRN chest 10/27/23 tablet (Nitrostat) pain #20 tabs apixaban 5 mg tablet (Eliquis) 5 mg PO BID #60 tabs 03/29/24 LEFT ANKLE FOOT ORTHOSIS #1 ea 08/11/24 metformin 1,000 mg tablet 1,000 mg PO BIDWMEAL #180 tabs 10/20/24 glipizide 10 mg tablet, extended 10 mg PO DAILY #90 tabs 11/01/24 release 24 hr pantoprazole 40 mg tablet,delayed 40 mg PO DAILY #90 tabs 11/01/24 release rosuvastatin 10 mg tablet 10 mg PO DAILY #90 tabs 12/28/24 BD PEN NEEDLES 29GX1/2 #100 ea 12/29/24 sucralfate 1 gram tablet 1 g PO TID PRN GERD 90 days #270 12/29/24 tabs insulin glargine 100 unit/mL (3 50 unit (0.5 mL) SUBCUT BID #45 mL 01/23/25 mL) subcutaneous pen (Lantus Solostar U-100 Insulin) cyclobenzaprine 10 mg tablet See Rx Instructions .Route 01/30/25 .COMPLEX #30 tabs gabapentin 300 mg capsule 300 mg PO TID #270 tabs 01/30/25 (Neurontin) Allergies Allergy/AdvReac Type Severity Reaction Status Date / Time atorvastatin (ATORVASTATIN) AdvReac Severe CHEST Verified 03/16/25 07:43 TIGHTNESS morphine (MORPHINE) AdvReac Mild GI UPSET Verified 03/16/25 07:43 AND VOMITING Review of Systems Constitutional Constitutional: Reports chills, Denies fatigue, Reports fever(s), Denies frequent falls, Denies lethargy and Denies weakness Eyes Eyes: Denies change in vision, Denies eye discharge, Denies irritation and Denies loss of vision ENT Ears, Nose, Mouth, and Throat: Denies change in voice, Denies dizziness, Denies neck pain, Denies sore throat and Denies throat swelling Cardiovascular Cardiovascular: Denies chest pain, Denies irregular heart rhythm, Denies lightheadedness, Denies palpitations, Denies dyspnea, Denies dyspnea on exertion and Denies orthopnea Respiratory Respiratory: Denies cough, Denies dyspnea, Denies dyspnea on exertion and Denies wheezing Gastrointestinal Gastrointestinal: Denies abdominal pain, Denies change in bowel habits, Denies diarrhea, Denies nausea and Denies vomiting Musculoskeletal Musculoskeletal: Denies neck pain and Denies numbness Integumentary/Breasts Skin/Breast: Denies pruritus, Denies erythema, Denies rash and Denies wounds Neurologic Neurologic: Denies behavioral changes, Denies confusion, Denies dizziness, Denies frequent falls, Denies loss of vision, Denies numbness and Denies weakness Psychiatric Psychiatric: Denies anxiety, Denies behavioral changes, Denies confusion, Denies depression, Denies homicidal ideation and Denies suicidal ideation Endocrine Endocrine: Denies fatigue, Denies flushing and Denies palpitations Hematologic/Lymphatic Hematologic/Lymphatic: Denies easy bruising Allergic/Immunologic Allergic/Immunologic: Denies urticaria, Denies throat swelling and Denies wheezing Patient History Medical History CKD stage G2/A3, 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) current occupational exposures/hazards: Yes alcohol intake: current substance use type: marijuana caffeine: No Smoking Status: Never smoker alcohol intake frequency: a few times a month Exam Narrative Exam Narrative: Const General:?cooperative, healthy appearing and comfortable [facility] Head:?normal to inspection Ears:?hearing grossly normal bilaterally Nose:?external nose normal Face and sinus:?normal facial exam and sinuses nontender Mouth:?oral mucosae normal Throat:?posterior oropharynx normal Eyes General:?appearance normal, both eyes and all related structures Neck Neck:?normal visual inspection and no lymphadenopathy noted Resp Effort & Inspection:?normal respiratory effort Auscultation:?clear to auscultation bilaterally Cardio Rate:?regular rate Rhythm:?regular rhythm GI Abdomen is soft, nondistended, nontender to palpation Neuro General:?patient alert, patient awake and patient oriented x3 Initial Vital Signs Initial Vital Signs: Vital Signs Temperature 98.5 F 04/10/25 13:31 Pulse Rate 67 04/10/25 13:31 Respiratory Rate 18 04/10/25 13:31 Blood Pressure 134/65 04/10/25 13:31 Pulse Oximetry 98 04/10/25 13:31 Oxygen Delivery Method Room Air 04/10/25 13:31 Course Orders Ordered: ED Orders 04/10/25 16:11 Urine Culture Stat Urine Microscopic Stat Vital Signs Vital signs: Vital Signs - 8 hr 04/10/25 13:31 Temperature 98.5 F Pulse Rate 67 Respiratory Rate 18 Blood Pressure 134/65 Pulse Oximetry 98 Oxygen Delivery Method Room Air MDM - Male Genitourinary Lab Data Labs: Lab Results 04/10/25 Range/Units 16:11 Urine RBC None seen (0-5/HPF) Urine WBC None seen (0-5/HPF) Ur Squamous Epith Cells None seen (0-5/HPF) Urine Bacteria None seen (None) Vol Urine Centrifuged 10ml (spun) Urine Dip Bedside Urine Glucose Negative Bedside Urine Bilirubin - Negative Bedside Urine Ketone - Negative Urine Specific [place] 1.010 Bedside Urine Occult Blood - Negative Bedside Urine pH 6.0 Bedside Urine Protein ++ 100 Bedside Urine Urobilinogen - Negative Bedside Urine Nitrite - Negative Bedside Urine Leukocytes - Negative Esterase MDM Narrative Medical decision making narrative: 75-year-old male presents to the ED status post feeling feverish with chills earlier this morning. Urine dipstick, UA were obtained without signs of UTI. Specimen has been sent for culture as well. Unclear etiology of patient's symptoms earlier today. Patient is symptom-free in the ED right now. Recommend patient continue the course of antibiotics. ED return precautions were discussed with patient. Patient verbalized understanding. Medical records reviewed: Yes Discharge Plan Departure Patient Disposition: Home Clinical Impression: Chills Instructions: DI for Urinary Tract Infection (UTI) Activity Restrictions/Additional Instructions: You were evaluated in the ED today for fever and chills earlier today. Your urine tested as normal today. We have sent the sample for culture as well. It appears that the antibiotics that you were on are appropriately addressing the UTI. Please follow-up with your primary care doctor as soon as possible. Return to the ED if you have worsening symptoms. Prescriptions: No Action (DME) true metrix meter See Rx Instructions .Route .MEDSUPPLY Qty: 1 0RF Rx Instructions: As directed to test blood sugar amlodipine [Norvasc] 2.5 mg tablet 5 mg PO BID Qty: 90 1RF True Metrix Glucose Test Strip Strip See Rx Instructions .ROUTE .COMPLEX Qty: 250 6RF Dose Instruction: CHECK BLOOD SUGAR 4 TIMES A DAY Rx Instructions: CHECK BLOOD SUGAR 4 TIMES A DAY carvedilol [Coreg] 25 mg tablet 50 mg PO BID Qty: 180 1RF lancets [TRUEplus Lancets] 33 gauge misc See Rx Instructions .ROUTE .COMPLEX Qty: 100 5RF Dose Instruction: CHECK BLODD SUGAR 4 TIMES A DAY Rx Instructions: CHECK BLODD SUGAR 4 TIMES A DAY losartan 50 mg tablet 50 mg PO BID Qty: 180 1RF nitroglycerin [Nitrostat] 0.4 mg tablet, sublingual 0.4 mg SL Q5-15M PRN (Reason: chest pain) Qty: 20 5RF Rx Instructions: until response; do not exceed 3 doses per episode Eliquis 5 mg tablet 5 mg PO BID Qty: 60 1RF (DME) LEFT ANKLE FOOT ORTHOSIS See Rx Instructions .Route .MEDSUPPLY Qty: 1 2RF Rx Instructions: USE TO AID/RELIEVE FOOT DROP. REPLACE IF DAMAGED OR BROKEN. metformin 1,000 mg tablet 1,000 mg PO BIDWMEAL Qty: 180 1RF glipizide 10 mg tablet extended release 24hr 10 mg PO DAILY Qty: 90 3RF pantoprazole 40 mg tablet,delayed release (DR/EC) 40 mg PO DAILY Qty: 90 3RF rosuvastatin 10 mg tablet 10 mg PO DAILY Qty: 90 3RF (DME) BD PEN NEEDLES 29GX1/2 Qty: 100 5RF Dose Instruction: As directed Rx Instructions: USE FOR INSULIN INJECTIONS sucralfate 1 gram tablet 1 g PO TID PRN (Reason: GERD) 90 Days Qty: 270 2RF Rx Instructions: Updated script sent. Natalee Solostar U-100 Insulin 100 unit/mL (3 mL) insulin pen 50 unit SUBCUT BID Qty: 45 1RF gabapentin [Neurontin] 300 mg capsule 300 mg PO TID Qty: 270 1RF cyclobenzaprine 10 mg tablet See Rx Instructions .ROUTE .COMPLEX Qty: 30 2RF Dose Instruction: TAKE 1 TABLET (10 MG ) ORALLY BEDTIME NEEDED FOR MUSCLE SPASM Rx Instructions: TAKE 1 TABLET (10 MG ) ORALLY BEDTIME NEEDED FOR MUSCLE SPASM spironolactone 25 mg tablet 25 mg PO DAILY niacin 500 mg tablet 500 mg PO Q DAY Qty: 0 iron 25 mg DAILY (DME) Respironics Dreamstation CPAP Qty: 1 Dose Instruction: As directed Patient Comments: Pressure: 6-12 cmH2O DME: [facility] Rx Instructions: As directed Referrals: Shital Dukes DO [Primary Care Provider, Family Practice] Stand Alone Forms: Patient Portal/API
[2025-04-10 17:25] VITALS: BP 143/73; PULSE 67; RESP 16; O2SAT 99
== END 2025-04-10 17:25 | disposition home or self-care (01) ==
PROVIDERS: Emergency Provider Student in an Organized Health Care Education/Training Program; PCP Family Medicine
DX: R68.83 Chills (without fever) (principal)
CPT/HCPCS: 81003; 81015; 87086; 99281; 99282

== ENCOUNTER → 2025-06-20 11:48 | Outpatient (CLI) | payer MEDICARE, OTHER, SELFPAY ==
[2025-06-20 12:38] LABS: Hemoglobin A1C% w Est Avg Glu 6.6 % (4.0-6.0)
== END ==
PROVIDERS: PCP Family Medicine; Referring Provider Family Medicine; Visit Provider Family Medicine
DX: E11.29 Type 2 diabetes mellitus with other diabetic kidney complication (principal); R80.9 Proteinuria, unspecified; Z79.4 Long term (current) use of insulin
CPT/HCPCS: 36415; 83036